=== PATIENT | male | born 1965 | race Caucasian/White ===

== ENCOUNTER 2018-06-04 09:41 | Emergency (ER) | payer MEDICAID ==
[~2018-06-04] VITALS: Ht 175.3 cm; Wt 63.5 kg
[2018-06-04 09:50] VITALS: BP_SYST 121
--- NOTE | 2018-06-04 09:55 | NUR ---
Pt placed to ER bed 06, to gown. Pt c/o hemorrhoids to anus with increasing discomfort especially with BM. Pt states that he recently started taking Fiber bars.
--- NOTE | 2018-06-04 10:10 | NUR ---
Dr. Lund at bedside. Multiple small hemorrhoids noted extruded from anus. No rectal bleeding noted.
[2018-06-04] MEDS ORDERED: LIDOCAINE/PRILOCAINE 5 GM CREAM (EMLA) TP ONE (10:15)
[2018-06-04] MEDS ORDERED: ACETAMINOPHEN 500 MG TABLET PO ONE (10:15)
[2018-06-04 10:30] VITALS: BP_SYST 123
--- NOTE | 2018-06-04 10:30 | NUR ---
Patient given written and verbal discharge instructions and verbalizes understanding. ER MD discussed with patient the results and treatment provided. Patient in stable condition. ID arm band removed. Rx of Motrin and Lidocaine Jelly given. Patient educated on pain management and to follow up with PMD. Pain Scale 1/10. Opportunity for questions provided and answered. Medication side effect fact sheet provided.
== END 2018-06-04 10:30 | disposition home or self-care (01) ==
LOC: SED 09:41
DX: K64.4 Residual hemorrhoidal skin tags (principal); F17.200 Nicotine dependence, unspecified, uncomplicated
CPT/HCPCS: 99283

== ENCOUNTER 2020-01-27 11:54 | Emergency (ER) | payer MEDICAID ==
[~2020-01-27] VITALS: Ht 175.3 cm; Wt 65.3 kg
[2020-01-27 12:40] VITALS: BP_SYST 122
--- NOTE | 2020-01-27 12:45 | NUR ---
PATIENT TO ER #2 AND ON TRAINER, SAO2, ABP
--- NOTE | 2020-01-27 12:50 | NUR ---
ER Dr. Beaulieu at bedside examining patient.
--- NOTE | 2020-01-27 12:55 | NUR ---
Pt present to the ER after a fall to his right side hurting his right shoulder x this morning approx 12 am. Swelling to R shoulder, no ROM to the upper arm, pain 10/10. Pt took ibuprofen with no relief. Will continue to monitor.
[2020-01-27] MEDS ORDERED: ONDANSETRON HCL 4 MG/2 ML VIAL IVP ONE (13:00)
[2020-01-27] MEDS ORDERED: MORPHINE 4 MG/ML INJ. SYRINGE IVP ONE (13:00)
[2020-01-27 13:50] LABS: BASOPHILS % (AUTO) 0.4 % (0.0-2.0); EOSINOPHILS % (AUTO) 0.2 % (0.0-4.0); HEMOGLOBIN 15.4 g/dL (14.0-18.0); LYMPHOCYTES % (AUTO) 9.2 % (20.5-51.5); MEAN CORPUSCULAR HEMOGLOBIN 35 pg (27-31); MEAN CORPUSCULAR HGB CONC 34 % (32-36); MEAN CORPUSCULAR VOLUME 102 fL (79.0-98.0); MONOCYTES % (AUTO) 9.4 % (1.7-9.3); NEUTROPHILS # (AUTO) 8.5 K/uL (1.8-7.7); NEUTROPHILS % (AUTO) 80.8 % (40.0-70.0); PLATELET COUNT (AUTO) 275 K/uL (130-430); RED BLOOD CELL COUNT(AUTO) 4.41 MIL/uL (4.2-6.2); RED CELL DISTRIBUTION WIDTH 14.1 % (9.0-15.0); WHITE BLOOD COUNT (AUTO) 10.6 K/uL (4.8-10.8)
--- NOTE | 2020-01-27 13:56 | NUR ---
REASSESSMENT; PATIENT STATES HIS SYMPTOMS ARE IMPROVED
[2020-01-27 14:05] LABS: CALCIUM 8.9 mg/dL (8.4-11.0); CREATININE 0.78 mg/dL (0.55-1.30); POTASSIUM 4.3 mmol/L (3.5-5.1)
[2020-01-27 14:23] LABS: ALBUMIN 3.4 g/dL (3.4-4.8); TOTAL BILIRUBIN 0.6 mg/dL (0.0-1.0)
[2020-01-27 14:31] LABS: BLOOD, URINE NEGATIVE (NEGATIVE); CLARITY/URINE CLEAR (CLEAR); GLUCOSE,URINE NEGATIVE (NEGATIVE); KETONES,URINE 2+ (NEGATIVE); LEUKOCYTE ESTERASE ,URINE TRACE (NEGATIVE); NITRITE, URINE NEGATIVE (NEGATIVE); PH,URINE 5.5 (5.0-8.0); PROTEIN URINE TRACE (NEGATIVE); UROBILINOGEN,URINE 0.2 (0.2-1.0)
[2020-01-27 14:41] LABS: BILIRUBIN,URINE NEGATIVE (NEGATIVE); COLOR,URINE AMBER (YELLOW)
[2020-01-27 14:43] LABS: BACTERIA,URINE FEW /HPF (None Seen); MUCUS,URINE 1+ /LPF (None Seen); RBC,URINE 0-3 /HPF (0-3)
--- NOTE | 2020-01-27 15:00 | NUR ---
Jonnie Ellis, pt's friend called for an update. Call back number [phone]. If patient is discharged, his friend will pick him up.
--- NOTE | 2020-01-27 15:26 | NUR ---
Pt reassessed, stable and pain free.
[2020-01-27 16:09] VITALS: BP_SYST 122
--- NOTE | 2020-01-27 16:09 | NUR ---
Patient given written and verbal discharge instructions and verbalizes understanding. ER MD discussed with patient the results and treatment provided. Patient in stable condition. ID arm band removed. IV catheter removed intact and dressing applied, no active bleeding. Rx of Tylenol #3, and zofran given. Patient educated on pain management and to follow up with PMD. Pain Scale 3/10. Opportunity for questions provided and answered. Medication side effect fact sheet provided.
== END 2020-01-27 16:09 | disposition home or self-care (01) ==
LOC: SED 11:54
DX: S42.291A Other displaced fracture of upper end of right humerus, initial encounter for closed fracture (principal); M19.90 Unspecified osteoarthritis, unspecified site; F17.200 Nicotine dependence, unspecified, uncomplicated; Z71.6 Tobacco abuse counseling; W01.0XXA Fall on same level from slipping, tripping and stumbling without subsequent striking against object, initial encounter; Y93.01 Activity, walking, marching and hiking; Y92.89 Other specified places as the place of occurrence of the external cause; Y99.8 Other external cause status
CPT/HCPCS: 36415; 71045; 73030; 80053; 81000; 82550; 83605; 83690; 84484; 85025; 87040; 93005; 96374; 96375; 99285; J2270; J2405

== ENCOUNTER 2020-10-30 09:11 | Inpatient (IN) | payer MEDICAID, SELFPAY ==
[~2020-10-30] VITALS: Ht 175.3 cm; Wt 54.9 kg
[~2020-10-30 09:11] MED LIST: DOCU-144 PO; HYDR-3925 PO
[2020-10-30] MEDS ORDERED: KETOROLAC TROMETHAMINE 30 MG VIAL IVP ONE (10:00)
[2020-10-30] MEDS ORDERED: NACL 0.9% 1,600 ML IV ONE (10:00)
[2020-10-30] MEDS ORDERED: PIPERACILLIN/TAZO 3.375 GM in NS 50 ML IV ONE (10:00)
[2020-10-30] MEDS ORDERED: PIPERACILLIN/TAZOBACTAM 3.375 GM/VIAL (ZOSYN) IV ONE (10:15)
[2020-10-30 10:24] LABS: BASOPHILS # (AUTO) 0.1 K/uL (0.0-0.2); BASOPHILS % (AUTO) 0.6 % (0.0-2.0); EOSINOPHILS # (AUTO) 0.1 K/uL (0.0-0.4); EOSINOPHILS % (AUTO) 1.7 % (0.0-4.0); HEMATOCRIT 38.6 % (36-54); HEMOGLOBIN 12.8 g/dL (14.0-18.0); LYMPHOCYTES # (AUTO) 2.1 K/uL (1.0-5.5); LYMPHOCYTES % (AUTO) 25.2 % (20.5-51.5); MEAN CORPUSCULAR HEMOGLOBIN 32 pg (27-31); MEAN CORPUSCULAR HGB CONC 33 % (32-36); MEAN CORPUSCULAR VOLUME 97 fL (79.0-98.0); MONOCYTES # (AUTO) 0.7 K/uL (0.0-1.0); MONOCYTES % (AUTO) 8.8 % (1.7-9.3); NEUTROPHILS # (AUTO) 5.3 K/uL (1.8-7.7); NEUTROPHILS % (AUTO) 63.7 % (40.0-70.0); PLATELET COUNT (AUTO) 315 K/uL (130-430); RED BLOOD CELL COUNT(AUTO) 3.98 MIL/uL (4.2-6.2); RED CELL DISTRIBUTION WIDTH 15.9 % (9.0-15.0); WHITE BLOOD COUNT (AUTO) 8.4 K/uL (4.8-10.8)
[2020-10-30 10:54] LABS: ALBUMIN 3.3 g/dL (3.4-4.8); CALCIUM 9.6 mg/dL (8.4-11.0); CREATININE 0.69 mg/dL (0.55-1.30); POTASSIUM 4.2 mmol/L (3.5-5.1); TOTAL BILIRUBIN 0.2 mg/dL (0.0-1.0)
[2020-10-30] MEDS ORDERED: MIDAZOLAM HCL 5 MG/5 ML VIAL IVP ONE (12:20)
[2020-10-30] MEDS ORDERED: LR 1,000 ML IV.SOLN IV ONE (12:20)
[2020-10-30] MEDS ORDERED: PROPOFOL 200MG/ 20ML VIAL (DIPRIVAN) IV ONE (12:20)
[2020-10-30] MEDS ORDERED: fentaNYL CITRATE/PF 100 MCG/2 ML AMP IVP ONE (12:20)
[2020-10-30] MEDS ORDERED: NS IRRIG SOLN 1000 ML IR ONE (12:20)
[2020-10-30] MEDS ORDERED: BUPIVACAINE /PF 0.25% 30 ML VIAL INJ ONE (12:20)
[2020-10-30] MEDS ORDERED: ONDANSETRON HCL 4 MG/2 ML VIAL IVP ONE (12:20)
[2020-10-30] MEDS ORDERED: METOCLOPRAMIDE HCL 10 MG/2 ML VIAL IVP ONE (12:20)
[2020-10-30] MEDS ORDERED: CEFAZOLIN 2 GM IVPB PREMIX 50 ML IV ONE (12:20)
[2020-10-30] MEDS ORDERED: HYDROmorphone 1 MG INJ. 1 MG/ML AMPUL IM PRN (13:15)
[2020-10-30] MEDS ORDERED: ONDANSETRON HCL 4 MG/2 ML VIAL IVP PRN (13:15)
[2020-10-30] MEDS ORDERED: ACETAMINOPHEN 325 MG TABLET PO PRN (13:15)
[2020-10-30] MEDS ORDERED: LORazepam 2 MG/ML VIAL IVP PRN (13:15)
[2020-10-30] MEDS ORDERED: HYDROcodone/ACETAMIN 5-325 MG TAB (NORCO/ VICODIN) PO PRN ×2 (13:15)
[2020-10-30] MEDS ORDERED: HYDROmorphone 2 MG/ML VIAL IVP PRN (13:15)
[2020-10-30 13:45] VITALS: BP_SYST 116
[2020-10-30] MEDS: NORMAL SALINE 5 ML DISP.SYRIN IVF SCH ×2 (15:25→21:26)
[2020-10-30 16:00] VITALS: BP_SYST 119
[2020-10-30] MEDS: PIPERACILLIN/TAZO 3.375/DEX-IS 50 ML IV SCH (18:00)
[2020-10-31 01:50] VITALS: BP_SYST 120
[2020-10-31 06:48] LABS: BASOPHILS % (AUTO) 0.2 % (0.0-2.0); EOSINOPHILS % (AUTO) 0.1 % (0.0-4.0); HEMOGLOBIN 11.6 g/dL (14.0-18.0); LYMPHOCYTES # (AUTO) 1.6 K/uL (1.0-5.5); LYMPHOCYTES % (AUTO) 15.5 % (20.5-51.5); MEAN CORPUSCULAR HEMOGLOBIN 32 pg (27-31); MEAN CORPUSCULAR HGB CONC 33 % (32-36); MEAN CORPUSCULAR VOLUME 97 fL (79.0-98.0); MONOCYTES # (AUTO) 0.5 K/uL (0.0-1.0); NEUTROPHILS # (AUTO) 8.1 K/uL (1.8-7.7); NEUTROPHILS % (AUTO) 79.2 % (40.0-70.0); PLATELET COUNT (AUTO) 312 K/uL (130-430); RED BLOOD CELL COUNT(AUTO) 3.63 MIL/uL (4.2-6.2); RED CELL DISTRIBUTION WIDTH 15.4 % (9.0-15.0); WHITE BLOOD COUNT (AUTO) 10.2 K/uL (4.8-10.8)
[2020-10-31] MEDS: NORMAL SALINE 5 ML DISP.SYRIN IVF SCH ×3 (07:15→21:27)
[2020-10-31] MEDS: PIPERACILLIN/TAZO 3.375/DEX-IS 50 ML IV SCH ×4 (07:15→18:50)
[2020-10-31 07:39] LABS: CALCIUM 9.3 mg/dL (8.4-11.0); CREATININE 0.71 mg/dL (0.55-1.30); POTASSIUM 4.7 mmol/L (3.5-5.1)
[2020-10-31 08:00] VITALS: BP_SYST 124
[2020-10-31 11:32] VITALS: BP_SYST 104
[2020-10-31 16:00] VITALS: BP_SYST 108
[2020-10-31] MEDS ORDERED: BALSAM PERU/CASTOR OIL 60 GM OINT...G. TP ONE (16:45)
[2020-10-31 20:00] VITALS: BP_SYST 120
[2020-11-01] MEDS: NORMAL SALINE 5 ML DISP.SYRIN IVF SCH ×3 (06:00→21:25)
[2020-11-01] MEDS: PIPERACILLIN/TAZO 3.375/DEX-IS 50 ML IV SCH ×4 (06:00→19:03)
[2020-11-01 07:32] LABS: BASOPHILS % (AUTO) 0.4 % (0.0-2.0); EOSINOPHILS # (AUTO) 0.1 K/uL (0.0-0.4); EOSINOPHILS % (AUTO) 0.9 % (0.0-4.0); HEMATOCRIT 35.3 % (36-54); HEMOGLOBIN 11.8 g/dL (14.0-18.0); LYMPHOCYTES # (AUTO) 2.6 K/uL (1.0-5.5); LYMPHOCYTES % (AUTO) 25.5 % (20.5-51.5); MEAN CORPUSCULAR HEMOGLOBIN 32 pg (27-31); MEAN CORPUSCULAR HGB CONC 33 % (32-36); MEAN CORPUSCULAR VOLUME 96 fL (79.0-98.0); MONOCYTES # (AUTO) 0.9 K/uL (0.0-1.0); MONOCYTES % (AUTO) 8.6 % (1.7-9.3); NEUTROPHILS # (AUTO) 6.7 K/uL (1.8-7.7); NEUTROPHILS % (AUTO) 64.6 % (40.0-70.0); PLATELET COUNT (AUTO) 290 K/uL (130-430); RED BLOOD CELL COUNT(AUTO) 3.68 MIL/uL (4.2-6.2); RED CELL DISTRIBUTION WIDTH 15.8 % (9.0-15.0); WHITE BLOOD COUNT (AUTO) 10.4 K/uL (4.8-10.8)
[2020-11-01 08:05] VITALS: BP_SYST 117
[2020-11-01 08:07] LABS: ALBUMIN 2.7 g/dL (3.4-4.8); CREATININE 0.77 mg/dL (0.55-1.30); POTASSIUM 4.3 mmol/L (3.5-5.1); TOTAL BILIRUBIN 0.3 mg/dL (0.0-1.0)
[2020-11-01 08:38] LABS: C-REACTIVE PROTEIN QUANT 5.1 mg/dL (0-0.5)
[2020-11-01 08:46] LABS: ERYTHROCYTE SEDIMENTATION RATE 80 MM/HR (0-15)
[2020-11-01 11:48] VITALS: BP_SYST 105
[2020-11-01 16:00] VITALS: BP_SYST 118
[2020-11-01] MEDS: HYDROcodone/ACETAMIN 10-325 MG TAB PO PRN (16:45)
[2020-11-01] MEDS: BALSAM PERU/CASTOR OIL 60 GM OINT...G. TP SCH (16:45)
[2020-11-01 20:00] VITALS: BP_SYST 110
[2020-11-01] MEDS: DOCUSATE SODIUM 100 MG CAPSULE PO SCH (21:24)
[2020-11-02 00:11] VITALS: BP_SYST 123
[2020-11-02] MEDS: PIPERACILLIN/TAZO 3.375/DEX-IS 50 ML IV SCH ×4 (01:22→17:30)
[2020-11-02] MEDS: NORMAL SALINE 5 ML DISP.SYRIN IVF SCH ×3 (05:54→20:47)
[2020-11-02 06:43] LABS: BASOPHILS % (AUTO) 0.3 % (0.0-2.0); EOSINOPHILS # (AUTO) 0.1 K/uL (0.0-0.4); EOSINOPHILS % (AUTO) 1.4 % (0.0-4.0); HEMATOCRIT 35.2 % (36-54); HEMOGLOBIN 11.8 g/dL (14.0-18.0); LYMPHOCYTES # (AUTO) 2.4 K/uL (1.0-5.5); LYMPHOCYTES % (AUTO) 27.2 % (20.5-51.5); MEAN CORPUSCULAR HEMOGLOBIN 32 pg (27-31); MEAN CORPUSCULAR HGB CONC 34 % (32-36); MEAN CORPUSCULAR VOLUME 96 fL (79.0-98.0); MONOCYTES # (AUTO) 0.9 K/uL (0.0-1.0); MONOCYTES % (AUTO) 10.5 % (1.7-9.3); NEUTROPHILS # (AUTO) 5.3 K/uL (1.8-7.7); NEUTROPHILS % (AUTO) 60.6 % (40.0-70.0); PLATELET COUNT (AUTO) 289 K/uL (130-430); RED BLOOD CELL COUNT(AUTO) 3.66 MIL/uL (4.2-6.2); RED CELL DISTRIBUTION WIDTH 15.4 % (9.0-15.0); WHITE BLOOD COUNT (AUTO) 8.7 K/uL (4.8-10.8)
[2020-11-02 07:13] LABS: CALCIUM 9.1 mg/dL (8.4-11.0); CREATININE 0.73 mg/dL (0.55-1.30); POTASSIUM 4.2 mmol/L (3.5-5.1)
[2020-11-02 07:49] LABS: ERYTHROCYTE SEDIMENTATION RATE 87 MM/HR (0-15)
[2020-11-02 07:56] LABS: C-REACTIVE PROTEIN QUANT 10.6 mg/dL (0-0.5)
[2020-11-02 08:00] VITALS: BP_SYST 109
[2020-11-02] MEDS: BALSAM PERU/CASTOR OIL 60 GM OINT...G. TP SCH (10:20)
[2020-11-02 12:00] VITALS: BP_SYST 120
[2020-11-02] MEDS: HYDROcodone/ACETAMIN 10-325 MG TAB PO PRN (16:16)
[2020-11-02 16:37] VITALS: BP_SYST 125
[2020-11-02 20:00] VITALS: BP_SYST 117
[2020-11-02] MEDS: DOCUSATE SODIUM 100 MG CAPSULE PO SCH (20:36)
[2020-11-03] VITALS: BP_SYST 120
[2020-11-03] MEDS: PIPERACILLIN/TAZO 3.375/DEX-IS 50 ML IV SCH ×4 (01:22→17:21)
[2020-11-03] MEDS: NORMAL SALINE 5 ML DISP.SYRIN IVF SCH ×3 (05:49→22:00)
[2020-11-03 06:58] LABS: BASOPHILS % (AUTO) 0.5 % (0.0-2.0); EOSINOPHILS # (AUTO) 0.2 K/uL (0.0-0.4); EOSINOPHILS % (AUTO) 3.1 % (0.0-4.0); HEMATOCRIT 34.6 % (36-54); HEMOGLOBIN 11.6 g/dL (14.0-18.0); LYMPHOCYTES # (AUTO) 2.3 K/uL (1.0-5.5); LYMPHOCYTES % (AUTO) 33.3 % (20.5-51.5); MEAN CORPUSCULAR HEMOGLOBIN 32 pg (27-31); MEAN CORPUSCULAR HGB CONC 33 % (32-36); MEAN CORPUSCULAR VOLUME 96 fL (79.0-98.0); MONOCYTES # (AUTO) 0.7 K/uL (0.0-1.0); MONOCYTES % (AUTO) 10.3 % (1.7-9.3); NEUTROPHILS # (AUTO) 3.7 K/uL (1.8-7.7); NEUTROPHILS % (AUTO) 52.8 % (40.0-70.0); PLATELET COUNT (AUTO) 305 K/uL (130-430); RED CELL DISTRIBUTION WIDTH 15.3 % (9.0-15.0)
[2020-11-03 07:23] LABS: CALCIUM 9.4 mg/dL (8.4-11.0); CREATININE 0.76 mg/dL (0.55-1.30)
[2020-11-03 07:30] VITALS: BP_SYST 133
[2020-11-03 08:19] LABS: ERYTHROCYTE SEDIMENTATION RATE 91 MM/HR (0-15)
[2020-11-03 09:02] LABS: C-REACTIVE PROTEIN QUANT 8.9 mg/dL (0-0.5)
[2020-11-03] MEDS: BALSAM PERU/CASTOR OIL 60 GM OINT...G. TP SCH (09:24)
[2020-11-03 12:00] VITALS: BP_SYST 131
[2020-11-03] MEDS: HYDROcodone/ACETAMIN 10-325 MG TAB PO PRN (15:43)
[2020-11-03 17:25] VITALS: BP_SYST 128
[2020-11-03 20:00] VITALS: BP_SYST 156
[2020-11-03] MEDS: DOCUSATE SODIUM 100 MG CAPSULE PO SCH (20:13)
[2020-11-03] MEDS ORDERED: cefTRIAXone 1 GM VIAL ONE (22:15)
[2020-11-04 04:00] VITALS: BP_SYST 137
[2020-11-04] MEDS: NORMAL SALINE 5 ML DISP.SYRIN IVF SCH ×3 (06:00→20:47)
[2020-11-04 06:40] LABS: BASOPHILS % (AUTO) 0.4 % (0.0-2.0); EOSINOPHILS # (AUTO) 0.3 K/uL (0.0-0.4); EOSINOPHILS % (AUTO) 4.5 % (0.0-4.0); HEMATOCRIT 36.9 % (36-54); HEMOGLOBIN 12.4 g/dL (14.0-18.0); LYMPHOCYTES # (AUTO) 2.4 K/uL (1.0-5.5); LYMPHOCYTES % (AUTO) 41.4 % (20.5-51.5); MEAN CORPUSCULAR HEMOGLOBIN 32 pg (27-31); MEAN CORPUSCULAR HGB CONC 34 % (32-36); MEAN CORPUSCULAR VOLUME 96 fL (79.0-98.0); MONOCYTES # (AUTO) 0.7 K/uL (0.0-1.0); MONOCYTES % (AUTO) 11.1 % (1.7-9.3); NEUTROPHILS # (AUTO) 2.5 K/uL (1.8-7.7); NEUTROPHILS % (AUTO) 42.6 % (40.0-70.0); PLATELET COUNT (AUTO) 319 K/uL (130-430); RED BLOOD CELL COUNT(AUTO) 3.84 MIL/uL (4.2-6.2); RED CELL DISTRIBUTION WIDTH 15.3 % (9.0-15.0); WHITE BLOOD COUNT (AUTO) 5.8 K/uL (4.8-10.8)
[2020-11-04 07:25] LABS: ALBUMIN 2.9 g/dL (3.4-4.8); CALCIUM 9.3 mg/dL (8.4-11.0); CREATININE 0.83 mg/dL (0.55-1.30); POTASSIUM 4.2 mmol/L (3.5-5.1); TOTAL BILIRUBIN 0.3 mg/dL (0.0-1.0)
[2020-11-04 08:00] VITALS: BP_SYST 136
[2020-11-04 08:10] LABS: ERYTHROCYTE SEDIMENTATION RATE 85 MM/HR (0-15)
[2020-11-04] MEDS: BALSAM PERU/CASTOR OIL 60 GM OINT...G. TP SCH (08:22)
[2020-11-04 09:26] LABS: C-REACTIVE PROTEIN QUANT 6.1 mg/dL (0-0.5)
[2020-11-04 12:29] VITALS: BP_SYST 108
[2020-11-04] MEDS: HYDROcodone/ACETAMIN 10-325 MG TAB PO PRN (16:01)
[2020-11-04 20:00] VITALS: BP_SYST 106
[2020-11-04 20:40] LABS: PROTHROMBIN TIME 10.7 SECS (9.5-12.5)
[2020-11-04] MEDS: DOCUSATE SODIUM 100 MG CAPSULE PO SCH (20:46)
[2020-11-05] VITALS: BP_SYST 118
[2020-11-05] MEDS: NORMAL SALINE 5 ML DISP.SYRIN IVF SCH ×3 (05:09→21:36)
[2020-11-05 06:32] LABS: BASOPHILS % (AUTO) 0.5 % (0.0-2.0); EOSINOPHILS # (AUTO) 0.2 K/uL (0.0-0.4); EOSINOPHILS % (AUTO) 2.6 % (0.0-4.0); HEMATOCRIT 37.1 % (36-54); HEMOGLOBIN 12.4 g/dL (14.0-18.0); LYMPHOCYTES # (AUTO) 2.2 K/uL (1.0-5.5); LYMPHOCYTES % (AUTO) 28.8 % (20.5-51.5); MEAN CORPUSCULAR HEMOGLOBIN 32 pg (27-31); MEAN CORPUSCULAR HGB CONC 33 % (32-36); MEAN CORPUSCULAR VOLUME 96 fL (79.0-98.0); MONOCYTES # (AUTO) 0.8 K/uL (0.0-1.0); MONOCYTES % (AUTO) 9.7 % (1.7-9.3); NEUTROPHILS # (AUTO) 4.5 K/uL (1.8-7.7); NEUTROPHILS % (AUTO) 58.4 % (40.0-70.0); PLATELET COUNT (AUTO) 329 K/uL (130-430); RED BLOOD CELL COUNT(AUTO) 3.87 MIL/uL (4.2-6.2); RED CELL DISTRIBUTION WIDTH 14.9 % (9.0-15.0); WHITE BLOOD COUNT (AUTO) 7.7 K/uL (4.8-10.8)
[2020-11-05 07:31] LABS: CALCIUM 9.3 mg/dL (8.4-11.0); CREATININE 0.85 mg/dL (0.55-1.30); POTASSIUM 3.9 mmol/L (3.5-5.1)
[2020-11-05 07:57] LABS: C-REACTIVE PROTEIN QUANT 3.5 mg/dL (0-0.5)
[2020-11-05 07:58] LABS: ERYTHROCYTE SEDIMENTATION RATE 78 MM/HR (0-15)
[2020-11-05 08:00] VITALS: BP_SYST 135
[2020-11-05] MEDS: BALSAM PERU/CASTOR OIL 60 GM OINT...G. TP SCH (08:51)
[2020-11-05] MEDS: HYDROcodone/ACETAMIN 10-325 MG TAB PO PRN (15:34)
[2020-11-05 16:03] VITALS: BP_SYST 131
[2020-11-05 20:00] VITALS: BP_SYST 127
[2020-11-05] MEDS: DOCUSATE SODIUM 100 MG CAPSULE PO SCH (21:36)
[2020-11-06] VITALS: BP_SYST 130
[2020-11-06] MEDS: NORMAL SALINE 5 ML DISP.SYRIN IVF SCH (06:16)
[2020-11-06 06:43] LABS: BASOPHILS % (AUTO) 0.4 % (0.0-2.0); EOSINOPHILS # (AUTO) 0.1 K/uL (0.0-0.4); EOSINOPHILS % (AUTO) 1.7 % (0.0-4.0); HEMATOCRIT 35.2 % (36-54); LYMPHOCYTES # (AUTO) 2.3 K/uL (1.0-5.5); LYMPHOCYTES % (AUTO) 26.5 % (20.5-51.5); MEAN CORPUSCULAR HEMOGLOBIN 32 pg (27-31); MEAN CORPUSCULAR HGB CONC 34 % (32-36); MEAN CORPUSCULAR VOLUME 95 fL (79.0-98.0); MONOCYTES # (AUTO) 1.1 K/uL (0.0-1.0); MONOCYTES % (AUTO) 12.5 % (1.7-9.3); NEUTROPHILS # (AUTO) 5.1 K/uL (1.8-7.7); NEUTROPHILS % (AUTO) 58.9 % (40.0-70.0); PLATELET COUNT (AUTO) 292 K/uL (130-430); RED CELL DISTRIBUTION WIDTH 15.2 % (9.0-15.0); WHITE BLOOD COUNT (AUTO) 8.6 K/uL (4.8-10.8)
[2020-11-06 06:44] LABS: CREATININE 0.69 mg/dL (0.55-1.30); POTASSIUM 4.1 mmol/L (3.5-5.1)
[2020-11-06 07:10] LABS: C-REACTIVE PROTEIN QUANT 6.3 mg/dL (0-0.5)
[2020-11-06 08:00] VITALS: BP_SYST 120
[2020-11-06 08:02] LABS: ERYTHROCYTE SEDIMENTATION RATE 84 MM/HR (0-15)
[2020-11-06] MEDS: BALSAM PERU/CASTOR OIL 60 GM OINT...G. TP SCH (08:50)
[2020-11-06] MEDS: HYDROcodone/ACETAMIN 10-325 MG TAB PO PRN (10:30)
[2020-11-06 12:42] VITALS: BP_SYST 139
[2020-11-06] MEDS ORDERED: CEPH-568 PO (12:53)
[2020-11-06 12:55] VITALS: BP_SYST 139
[2020-11-06] MEDS ORDERED: BALS60OI TP (13:03)
[2020-11-06] MEDS ORDERED: NL IV (13:04)
== END 2020-11-06 13:40 | disposition home or self-care (01) | DRG 364 ==
LOC: SED 09:11 → SDS 10:01 → SMU 10:08 → SDS 14:09 → SMU 14:11
PROVIDERS: ADMIT Preventive Medicine Preventive Medicine/Occupational Environmental Medicine; ATTEND Preventive Medicine Preventive Medicine/Occupational Environmental Medicine
PROC: 0QB30ZZ Excision of Left Pelvic Bone, Open Approach (ICD-10-PCS; principal; 2020-10-30 12:00)
DX: L89.329 Pressure ulcer of left buttock, unspecified stage (principal); L02.31 Cutaneous abscess of buttock; E88.09 Other disorders of plasma-protein metabolism, not elsewhere classified; D64.9 Anemia, unspecified; R73.9 Hyperglycemia, unspecified; E44.0 Moderate protein-calorie malnutrition; Z20.822 Contact with and (suspected) exposure to COVID-19; B96.20 Unspecified Escherichia coli [E. coli] as the cause of diseases classified elsewhere; Z79.891 Long term (current) use of opiate analgesic; Z79.899 Other long term (current) drug therapy; Z68.1 Body mass index [BMI] 19.9 or less, adult
CPT/HCPCS: 36415; 71045; 78315; 80048; 80053; 83605; 85025; 85610-TC; 85651-TC; 85730-TC; 86140; 87040-TC; 87070; 87070-TC; 93005; 96365; 96375; A9503; J0690; J0696; J1885; J2250; J2405; J2543; J2704; J2765; J3010; J3490; J7060; J7120

== ENCOUNTER 2022-07-16 08:36 | Inpatient (IN) | payer MEDICAID ==
[~2022-07-16] VITALS: Ht 175.3 cm; Wt 61.2 kg
[~2022-07-16 08:36] MED LIST changes: +BALS60OI TP; +CEPH-568 PO; +NL IV
--- NOTE | 2022-07-16 08:52 | NUR ---
Patient to ER bed 04 to gown for evaluation. Side rails up. .
--- NOTE | 2022-07-16 08:53 | NUR ---
Pt brought by , A&Ox4, pt presents to ER with R buttocks/ R lower back pain, pt states he had a spider bite sx on R buttocks 2 years ago, no redness or open areas noted at this time, VSS, will cont to monitor.
--- NOTE | 2022-07-16 08:54 | NUR ---
Dr Beaulieu evaluating patient at bedside
[2022-07-16 08:55] VITALS: BP_SYST 123
[2022-07-16 09:17] LABS: BASOPHILS # (AUTO) 0.1 K/uL (0.0-0.2); BASOPHILS % (AUTO) 0.6 % (0.0-2.0); EOSINOPHILS % (AUTO) 0.1 % (0.0-4.0); HEMATOCRIT 39.8 % (36-54); HEMOGLOBIN 13.8 g/dL (14.0-18.0); LYMPHOCYTES # (AUTO) 1.1 K/uL (1.0-5.5); MEAN CORPUSCULAR HEMOGLOBIN 34 pg (27-31); MEAN CORPUSCULAR HGB CONC 35 % (32-36); MEAN CORPUSCULAR VOLUME 97 fL (79.0-98.0); MONOCYTES # (AUTO) 1.2 K/uL (0.0-1.0); NEUTROPHILS # (AUTO) 8.5 K/uL (1.8-7.7); NEUTROPHILS % (AUTO) 78.3 % (40.0-70.0); PLATELET COUNT (AUTO) 293 K/uL (130-430); RED BLOOD CELL COUNT(AUTO) 4.11 MIL/uL (4.2-6.2); RED CELL DISTRIBUTION WIDTH 14.2 % (9.0-15.0); WHITE BLOOD COUNT (AUTO) 10.9 K/uL (4.8-10.8)
[2022-07-16 09:26] LABS: CREATININE 0.78 mg/dL (0.55-1.30)
[2022-07-16 09:31] LABS: ALBUMIN 2.9 g/dL (3.4-4.8); TOTAL BILIRUBIN 0.5 mg/dL (0.0-1.0)
[2022-07-16 09:42] LABS: C-REACTIVE PROTEIN QUANT 25.2 mg/dL (0-0.5)
--- NOTE | 2022-07-16 10:27 | NUR ---
NOTIFIED ED ADMITTING, RANDA, REGARDING DR. MOSS'S REQUEST FOR ADMISSION/TRANSFER. PER DR. MOSS, PT IS STABLE FOR TRANSFER. WILL CONTACT BOG WORKER REGARDING THIS MATTER. PER FACESHEET: [facility]- [facility]
[2022-07-16] MEDS ORDERED: PIPERACILLIN/TAZO 4.5GM/DEX-IS 100 ML IV SCH (10:30)
[2022-07-16] MEDS ORDERED: PIPERACILLIN/TAZOBACTAM 4.5 GM/VIAL (ZOSYN) IV ONE (10:49)
[2022-07-16] MEDS ORDERED: PIPERACILLIN/TAZO 4.5GM/DEX-IS 100 ML IV ONE (10:59)
[2022-07-16] MEDS ORDERED: MORPHINE 2 MG/ML INJ. SYRINGE IVP ONE (11:00)
--- NOTE | 2022-07-16 11:11 | NUR ---
Report given to Daria ZUÑIGA
[2022-07-16] MEDS ORDERED: VANCOMYCIN HCL 1,000 MG in NS 250 ML IV ONE (11:15)
--- NOTE | 2022-07-16 11:47 | NUR ---
per sam, ed admitting, stated that pt insurance stated to fax clinicals after pt is admitted. will call industrial automation specialist hospitalist, dr. castro, for admission
[2022-07-16] MEDS ORDERED: D5/0.45 NS 1,000 ML IV ONE (12:00)
--- NOTE | 2022-07-16 12:03 | NUR ---
Admit bed requested Patient will be admitted to care of Admitted to [facility] unit. Diagnosis Back Abscess Inpatient (Yes or No) Yes Observation (Yes or No) No Orientation concerns or request close to nursing station (Yes or No) No Covid Status NEG On vent or bipap No Isolation requirements No Needs a sitter No From Home (Yes or if No enter name of facility) Home Requires Dialysis (Yes or No) No Med Rec Completed (Yes of No) Yes
--- NOTE | 2022-07-16 13:04 | NUR ---
Patient will be admitted to care of Dr Mancia. Admitted to [facility] unit. Will go to room 101B. Belongings list completed. Complete and up to date summary report printed. SBAR report to be given at bedside with opportunity for questions.
--- NOTE | 2022-07-16 13:18 | NUR ---
CONSULTATION PAGED REASON FOR CONSULTATION BACK ABSCESS WAS CONSULT CALED?Y PERSON WHO WAS NOTIFIED:KALEY CONSULTING PHYSICIAN:ZAC SARABIA EDITOR MANAGING DIRECTOR SPECIALTY:SURGEON EDITOR MANAGING DIRECTOR PHONE NUMBER:[phone] REQUESTING PHYSICIAN:THOMAS GOODWIN
[2022-07-16 13:50] VITALS: BP_SYST 135
[2022-07-16] MEDS ORDERED: HYDROcodone/ACETAMIN 5-325 MG TAB (NORCO/ VICODIN) PO PRN (15:15)
[2022-07-16] MEDS: HYDROcodone/ACETAMIN 10-325 MG TAB PO PRN ×2 (15:42→23:51)
[2022-07-16 16:00] VITALS: BP_SYST 116
[2022-07-16 16:57] LABS: INR 1.2 (0.80-1.20); PROTHROMBIN TIME 11.7 SECS (9.5-12.5)
[2022-07-16] MEDS ORDERED: BUPIVACAINE /PF 0.25% 30 ML VIAL INJ ONE (17:00)
[2022-07-16] MEDS ORDERED: [UNRECOGNIZED DRUG - OTHER] INJ ONE (17:00)
[2022-07-16] MEDS ORDERED: NS IRRIG SOLN 1000 ML IR ONE (17:00)
[2022-07-16] MEDS ORDERED: fentaNYL CITRATE 250 MCG/5 ML AMP ONE (17:00)
[2022-07-16] MEDS ORDERED: LR 1,000 ML IV.SOLN IV ONE (17:00)
[2022-07-16] MEDS ORDERED: MIDAZOLAM HCL 5 MG/5 ML VIAL ONE (17:00)
[2022-07-16] MEDS ORDERED: PROPOFOL 200MG/ 20ML VIAL (DIPRIVAN) IV ONE (17:00)
[2022-07-16] MEDS ORDERED: ONDANSETRON HCL 4 MG/2 ML VIAL IVP PRN (18:15)
[2022-07-16] MEDS ORDERED: METOCLOPRAMIDE HCL 10 MG/2 ML VIAL IVP PRN (18:15)
[2022-07-16] MEDS ORDERED: KETOROLAC TROMETHAMINE 30 MG VIAL IVP PRN (18:15)
[2022-07-16] MEDS ORDERED: MORPHINE 4 MG INJ. 4 MG/ML VIAL IVP PRN ×2 (18:15)
[2022-07-16 20:08] VITALS: BP_SYST 123
[2022-07-16] MEDS: DOCUSATE SODIUM 250 MG CAPSULE PO SCH (21:00)
[2022-07-16] MEDS: CEFAZOLIN SODIUM 500 MG in D5W 50 ML IV SCH (22:00)
[2022-07-16] MEDS: metroNIDAZOLE 250 mg/NS 50 ML IV SCH (23:50)
[2022-07-17 00:46] VITALS: BP_SYST 117
[2022-07-17] MEDS: CEFAZOLIN SODIUM 500 MG in D5W 50 ML IV SCH ×3 (05:28→21:10)
[2022-07-17] MEDS: HYDROcodone/ACETAMIN 10-325 MG TAB PO PRN ×2 (05:29→20:18)
[2022-07-17] MEDS: metroNIDAZOLE 250 mg/NS 50 ML IV SCH ×3 (06:20→23:34)
[2022-07-17] MEDS: DOCUSATE SODIUM 250 MG CAPSULE PO SCH ×2 (09:00→21:10)
--- NOTE | 2022-07-17 10:21 | NUR ---
CONSULTATION PAGED REASON FOR CONSULTATION:LEUKOCYTOSIS WAS CONSULT CALLED?Y PERSON WHO WAS NOTIFIED:FOUZIA CONSULTING PHYSICIAN:CARLOS A DAVIDSON NUCLEAR SPECTROSCOPIST SPECIALTY:INFECTIOUS DISEASE NUCLEAR SPECTROSCOPIST PHONE NUMBER:[phone] REQUESTING PHYSICIAN:THOMAS GOODWIN
[2022-07-17] MEDS ORDERED: NALOXONE HCL 0.4 MG/ML AMP (NARCAN) IVP PRN (10:30)
[2022-07-17 10:52] LABS: BASOPHILS % (AUTO) 0.3 % (0.0-2.0); EOSINOPHILS % (AUTO) 0.1 % (0.0-4.0); HEMATOCRIT 38.8 % (36-54); HEMOGLOBIN 13.2 g/dL (14.0-18.0); LYMPHOCYTES # (AUTO) 1.1 K/uL (1.0-5.5); LYMPHOCYTES % (AUTO) 11.4 % (20.5-51.5); MEAN CORPUSCULAR HEMOGLOBIN 33 pg (27-31); MEAN CORPUSCULAR HGB CONC 34 % (32-36); MEAN CORPUSCULAR VOLUME 96 fL (79.0-98.0); MONOCYTES # (AUTO) 1.1 K/uL (0.0-1.0); MONOCYTES % (AUTO) 11.4 % (1.7-9.3); NEUTROPHILS # (AUTO) 7.1 K/uL (1.8-7.7); NEUTROPHILS % (AUTO) 76.8 % (40.0-70.0); PLATELET COUNT (AUTO) 271 K/uL (130-430); RED BLOOD CELL COUNT(AUTO) 4.03 MIL/uL (4.2-6.2); RED CELL DISTRIBUTION WIDTH 14.2 % (9.0-15.0); WHITE BLOOD COUNT (AUTO) 9.2 K/uL (4.8-10.8)
[2022-07-17 10:59] LABS: CALCIUM 8.1 mg/dL (8.4-11.0); CREATININE 0.64 mg/dL (0.55-1.30)
[2022-07-17 11:15] VITALS: BP_SYST 130
[2022-07-17 15:35] VITALS: BP_SYST 127
--- NOTE | 2022-07-17 15:46 | NUR ---
Dietitian Recommendations * Continue regular diet * Ensure enlive (durga) BID * Recommend wound care supplements: daily MVI, 250mg VIT C, 220mg ZnSo4 x 14 days, Luis Miguel BID Please refer to nutritional assessment for details, thanks! CC, MPH, RDN
--- NOTE | 2022-07-17 19:15 | NUR ---
OPENING NOTE REPORT RECEIVED FROM DAYSHIFT NURSE. PATIENT RECEIVED LYING IN BED, FACE DOWN, NO S/S OF ACUTE DISTRESS. BREATHING EVEN AND UNLABORED. IVF INFUSING WELL. CALL LIGHT WITH PATIENT. WILL CONTINUE TO MONITOR.
[2022-07-17 20:00] VITALS: BP_SYST 132
[2022-07-17] MEDS: MORPHINE 2 MG/ML INJ. SYRINGE IVP PRN (20:02)
--- NOTE | 2022-07-17 20:30 | NUR ---
DR LEUNG AT BEDSIDE ASSESSED WOUND, MD DID WOUND CARE. ALL NEEDS MET. PATIENT MEDICATED PRIOR TO WOUND CARE.
[2022-07-18] VITALS: BP_SYST 124
--- NOTE | 2022-07-18 | NUR ---
ROUND PATIENT IN BED, RESTING. NO SIGNS OF DISCOMFORT. ALL NEEDS MET. WILL MONITOR.
[2022-07-18] MEDS: HYDROcodone/ACETAMIN 10-325 MG TAB PO PRN ×2 (00:43→13:28)
[2022-07-18] MEDS: CEFAZOLIN SODIUM 500 MG in D5W 50 ML IV SCH ×3 (05:22→23:32)
[2022-07-18] MEDS: metroNIDAZOLE 250 mg/NS 50 ML IV SCH ×3 (05:58→23:37)
--- NOTE | 2022-07-18 06:40 | NUR ---
CLOSING NOTE PATIENT IN BED, RESTING. NO S/S OF ACUTE DISTRESS. BREATHING EVEN AND UNLABORED. IV SITE IS PATENT, NO SIGNS OF INFILTRATION OR INFECTION NOTED. IV SITE PATENT, NO SIGNS OF INFILTRATION OR INFECTION NOTED. ALL NEEDS MET THROUGHOUT SHIFT. FALL, SAFETY PRECAUTIONS MAINTAINED THROUGHOUT SHIFT. WILL CONTINUE TO MONITOR UNTIL PATIENT CARE IS ENDORSED TO ONCOMING DAYSHIFT NURSE.
--- NOTE | 2022-07-18 07:03 | NUR ---
receive the patinet from the hotel night auditor glo Berg in a stable condition . no sign and symptoms of respiratory distress . no complain of pain at this time . will continue to monitor .
[2022-07-18 08:10] LABS: BASOPHILS % (AUTO) 0.3 % (0.0-2.0); EOSINOPHILS % (AUTO) 0.3 % (0.0-4.0); HEMATOCRIT 39.5 % (36-54); HEMOGLOBIN 13.7 g/dL (14.0-18.0); LYMPHOCYTES % (AUTO) 9.7 % (20.5-51.5); MEAN CORPUSCULAR HEMOGLOBIN 34 pg (27-31); MEAN CORPUSCULAR HGB CONC 35 % (32-36); MEAN CORPUSCULAR VOLUME 98 fL (79.0-98.0); MONOCYTES # (AUTO) 1.2 K/uL (0.0-1.0); NEUTROPHILS % (AUTO) 77.7 % (40.0-70.0); PLATELET COUNT (AUTO) 287 K/uL (130-430); RED BLOOD CELL COUNT(AUTO) 4.05 MIL/uL (4.2-6.2); WHITE BLOOD COUNT (AUTO) 10.3 K/uL (4.8-10.8)
[2022-07-18 08:35] LABS: CALCIUM 8.9 mg/dL (8.4-11.0); CREATININE 0.58 mg/dL (0.55-1.30)
[2022-07-18 09:08] LABS: C-REACTIVE PROTEIN QUANT 32.2 mg/dL (0-0.5)
[2022-07-18] MEDS: DOCUSATE SODIUM 250 MG CAPSULE PO SCH ×2 (10:00→21:04)
[2022-07-18] MEDS: MORPHINE 2 MG/ML INJ. SYRINGE IVP PRN ×3 (10:01→21:07)
[2022-07-18 12:19] VITALS: BP_SYST 128
[2022-07-18 13:08] LABS: ERYTHROCYTE SEDIMENTATION RATE 77 MM/HR (0-15)
--- NOTE | 2022-07-18 14:48 | NUR ---
gave norco 10/325 to patient for comfort of wound dressing change the wound dressing with normal saline . wet to dry dressing . tolerated the procedure . afebrile . no redness on the wound site .
[2022-07-18 16:00] VITALS: BP_SYST 125
--- NOTE | 2022-07-18 18:46 | NUR ---
will endorse to warehouse forklift operator rn for continuity of care
[2022-07-18 19:00] VITALS: BP_SYST 126
[2022-07-18 20:00] VITALS: BP_SYST 126
[2022-07-19] VITALS (8 sets, daily range): BP systolic 96–125
--- NOTE | 2022-07-19 00:46 | NUR ---
SALINE LOCK INFILTRATED TO LFA (20 G). RESTARTED W SALINE LOCK TO LFA 22 G)
[2022-07-19] MEDS: HYDROcodone/ACETAMIN 10-325 MG TAB PO PRN ×2 (02:24→13:55)
[2022-07-19] MEDS: CEFAZOLIN SODIUM 500 MG in D5W 50 ML IV SCH ×3 (05:11→21:30)
[2022-07-19] MEDS: metroNIDAZOLE 250 mg/NS 50 ML IV SCH ×3 (06:06→21:31)
--- NOTE | 2022-07-19 08:00 | NUR ---
Mr Cano has been assessed as indicated. He has been noted to be both pleasant and cooperative.
[2022-07-19 08:24] LABS: BASOPHILS % (AUTO) 0.4 % (0.0-2.0); EOSINOPHILS % (AUTO) 0.1 % (0.0-4.0); HEMATOCRIT 36.8 % (36-54); HEMOGLOBIN 12.7 g/dL (14.0-18.0); LYMPHOCYTES # (AUTO) 1.1 K/uL (1.0-5.5); LYMPHOCYTES % (AUTO) 10.5 % (20.5-51.5); MEAN CORPUSCULAR HEMOGLOBIN 34 pg (27-31); MEAN CORPUSCULAR HGB CONC 35 % (32-36); MEAN CORPUSCULAR VOLUME 97 fL (79.0-98.0); MONOCYTES # (AUTO) 1.5 K/uL (0.0-1.0); MONOCYTES % (AUTO) 14.6 % (1.7-9.3); NEUTROPHILS # (AUTO) 7.7 K/uL (1.8-7.7); NEUTROPHILS % (AUTO) 74.4 % (40.0-70.0); PLATELET COUNT (AUTO) 281 K/uL (130-430); RED BLOOD CELL COUNT(AUTO) 3.78 MIL/uL (4.2-6.2); RED CELL DISTRIBUTION WIDTH 14.2 % (9.0-15.0); WHITE BLOOD COUNT (AUTO) 10.4 K/uL (4.8-10.8)
[2022-07-19 08:50] LABS: CALCIUM 8.6 mg/dL (8.4-11.0); CREATININE 0.63 mg/dL (0.55-1.30)
[2022-07-19] MEDS: DOCUSATE SODIUM 250 MG CAPSULE PO SCH ×2 (09:24→21:30)
[2022-07-19 09:27] LABS: C-REACTIVE PROTEIN QUANT 33.8 mg/dL (0-0.5)
[2022-07-19] MEDS: MORPHINE 2 MG/ML INJ. SYRINGE IVP PRN ×3 (09:33→21:31)
[2022-07-19 14:04] LABS: ERYTHROCYTE SEDIMENTATION RATE 80 MM/HR (0-15)
[2022-07-19] MEDS: ACETAMINOPHEN 325 MG TABLET PO PRN (14:41)
--- NOTE | 2022-07-19 15:30 | NUR ---
Mr Cano has fever and chills. Ice and Tylenol provided. Temp decreased and chills cease
--- NOTE | 2022-07-19 19:15 | NUR ---
Hand off has been given to Akira
--- NOTE | 2022-07-19 20:00 | NUR ---
REPORT RECEIVED FROM [facility]. PATIENT RECEIVED LYING IN BED, AWAKE, NO S/S OF ACUTE DISTRESS. BREATHING EVEN AND UNLABORED. HOB RAISED. IVF INFUSING WELL, IV SITE PATENT, NO SIGNS OF INFILTRATION OR INFECTION NOTED. CALL LIGHT WITH PATIENT. BED IS LOCKED AND AT LOWEST POSITION. DRESSING CHANGE TO BE DONE WITHIN SHIFT. VSS, BP LOW INITALLY, RECHECKED VSS. WILL CONTINUE TO MONITOR.
--- NOTE | 2022-07-19 21:00 | NUR ---
PT HAS 9/10 PAIN, REQUEST MORPHNE. WILL MONITOR BP
--- NOTE | 2022-07-20 | NUR ---
changed abcess dressing. wet to dry, saline wash, wound pad. Pt wants pain medication before next dressing change.
[2022-07-20 01:07] VITALS: BP_SYST 101
[2022-07-20] MEDS: MORPHINE 2 MG/ML INJ. SYRINGE IVP PRN ×4 (04:02→21:58)
[2022-07-20] MEDS: metroNIDAZOLE 250 mg/NS 50 ML IV SCH ×3 (05:25→22:07)
[2022-07-20 05:59] LABS: BASOPHILS % (AUTO) 0.1 % (0.0-2.0); EOSINOPHILS % (AUTO) 0.5 % (0.0-4.0); HEMATOCRIT 36.9 % (36-54); HEMOGLOBIN 12.6 g/dL (14.0-18.0); LYMPHOCYTES # (AUTO) 0.5 K/uL (1.0-5.5); LYMPHOCYTES % (AUTO) 7.4 % (20.5-51.5); MEAN CORPUSCULAR HEMOGLOBIN 33 pg (27-31); MEAN CORPUSCULAR HGB CONC 34 % (32-36); MEAN CORPUSCULAR VOLUME 97 fL (79.0-98.0); MONOCYTES % (AUTO) 13.6 % (1.7-9.3); NEUTROPHILS # (AUTO) 5.5 K/uL (1.8-7.7); NEUTROPHILS % (AUTO) 78.4 % (40.0-70.0); PLATELET COUNT (AUTO) 277 K/uL (130-430); RED BLOOD CELL COUNT(AUTO) 3.79 MIL/uL (4.2-6.2); RED CELL DISTRIBUTION WIDTH 14.1 % (9.0-15.0)
[2022-07-20] MEDS: CEFAZOLIN SODIUM 500 MG in D5W 50 ML IV SCH ×3 (06:26→21:14)
[2022-07-20 06:54] LABS: ALBUMIN 2.3 g/dL (3.4-4.8); CALCIUM 8.6 mg/dL (8.4-11.0); CREATININE 0.61 mg/dL (0.55-1.30); TOTAL BILIRUBIN 0.3 mg/dL (0.0-1.0)
--- NOTE | 2022-07-20 07:25 | NUR ---
OPENING NOTE PT IN BED, RESPIRATIONS EVEN AND NON-LABORED. IV SITE REMAIN INTACT AND PATENT. BED IS DEBORA AND AT LOW POSITION. ENCOURAGED TO USE CALL LIGHT FOR ASSISTANCE. PT C/O MILD PAIN TO HER BUTTOCK. WILL PROVIDE PAIN MEDICATION ORDERED. WILL CONTINUE TO MONITOR.
[2022-07-20 08:19] LABS: ERYTHROCYTE SEDIMENTATION RATE 81 MM/HR (0-15)
[2022-07-20] MEDS: DOCUSATE SODIUM 250 MG CAPSULE PO SCH ×2 (08:38→20:17)
[2022-07-20 09:38] LABS: C-REACTIVE PROTEIN QUANT 34.6 mg/dL (0-0.5)
[2022-07-20] MEDS: HYDROcodone/ACETAMIN 10-325 MG TAB PO PRN ×2 (10:19→20:17)
--- NOTE | 2022-07-20 10:45 | NUR ---
WOUND CARE PROVIDED WOUND CARE. SEE [facility] SHIFT ASSESSMENT
--- NOTE | 2022-07-20 11:05 | NUR ---
PATIENT WAS OBSERVED AMBULATING SAFELY USING THE FWW IN THE HALLWAY. HIS SIGNIFICANT OTHER WAS WITH HIM. PATIENT IS SUPERVISED TO INDEPENDENT WITH HIS FUNCTIONAL MOBILITY. HE IS SAFE TO CONTINUE TO AMBULATE WITH NURSING SUPERVISION. HE DOES NOT NEED FURTHER PHYSICAL THERAPY.
[2022-07-20 11:33] VITALS: BP_SYST 114
[2022-07-20 12:00] VITALS: BP_SYST 140
--- NOTE | 2022-07-20 12:00 | NUR ---
NOTES; PT IN BED, PROVIDED PAIN MEDICATION WITH EFFECTIVE RESULT. DENIES ANY ACUTE DISTRESS OR DISCOMFORT. ENCOURAGED TO USE CALL LIGHT FOR ASSISTANCE. WILL CONTINUE TO MONITOR
--- NOTE | 2022-07-20 15:00 | NUR ---
NOTES PT FORGOT TO PEE IN URINE SAMPLE CUP. REMINDED PT TO PEE IN THE URINE SAMPLE CUP FOR THE URINE ANALYSIS. PT VERBALIZED UNDERSTANDING
[2022-07-20 15:24] VITALS: BP_SYST 127
--- NOTE | 2022-07-20 17:00 | NUR ---
COLLECTED UA; DELIVERED THE URINE SAMPLE TO LAB.
--- NOTE | 2022-07-20 18:43 | NUR ---
CLOSING NOTE PT IN BED, SLEEPING WITH EVEN AND NON-LABORED BREATHING. IV SITE REMAIN PATENT AND INTACT. FAMILY MEMBER AT BEDSIDE. BED IS LOCKED AND AT LOW POSITION. SAFETY PRECAUTION IN PLACED. ENCOURAGED TO USE CALL LIGHT FOR ASSISTANCE. WILL ENDORSE CARE TO BINDER OPERATOR NURSE
[2022-07-20 20:00] VITALS: BP_SYST 121
--- NOTE | 2022-07-20 23:40 | NUR ---
Shift Summary: patient is AAOX4. vitals are stable upon start of shift. introduced myself to patient and updated patient on plan of care for the evening. patient states he understands and has no questions or concerns at the time. patient is currently resting. call light within reach, bed set to low, locked, and alarm on. will continue to monitor. Addendum: 07/21/22 at 0625 by Ishan Casper RN RN hourly rounding done. patient resting. all concerns during shift addressed. patient currently has no questions or concerns at this time. will endorse care to oncoming nurse. call light within reach, bed set to low, locked, and alarm on.
[2022-07-21] VITALS: BP_SYST 124
--- NOTE | 2022-07-21 02:30 | NUR ---
Wound care performed to lt buttock. area edematous with change in skin color around site and red wound bed with slough around edges, with large amount of foul smelling purulent drainage continuously oozing without any intervention. Vipul from wound care asked to look at site and large amount of purulent drainage further expressed with light touch. Drsg applied and message left for surgeon regarding status of wound and drainage observed.
[2022-07-21] MEDS: MORPHINE 2 MG/ML INJ. SYRINGE IVP PRN ×4 (04:33→23:44)
[2022-07-21] MEDS: CEFAZOLIN SODIUM 500 MG in D5W 50 ML IV SCH ×3 (05:01→21:59)
[2022-07-21] MEDS: metroNIDAZOLE 250 mg/NS 50 ML IV SCH ×3 (05:59→22:10)
[2022-07-21 07:18] LABS: BASOPHILS % (AUTO) 0.4 % (0.0-2.0); EOSINOPHILS % (AUTO) 0.1 % (0.0-4.0); HEMATOCRIT 35.7 % (36-54); HEMOGLOBIN 12.3 g/dL (14.0-18.0); LYMPHOCYTES # (AUTO) 0.6 K/uL (1.0-5.5); LYMPHOCYTES % (AUTO) 6.6 % (20.5-51.5); MEAN CORPUSCULAR HEMOGLOBIN 33 pg (27-31); MEAN CORPUSCULAR HGB CONC 35 % (32-36); MEAN CORPUSCULAR VOLUME 97 fL (79.0-98.0); MONOCYTES # (AUTO) 1.5 K/uL (0.0-1.0); MONOCYTES % (AUTO) 16.6 % (1.7-9.3); NEUTROPHILS # (AUTO) 6.7 K/uL (1.8-7.7); NEUTROPHILS % (AUTO) 76.3 % (40.0-70.0); PLATELET COUNT (AUTO) 272 K/uL (130-430); RED CELL DISTRIBUTION WIDTH 14.1 % (9.0-15.0); WHITE BLOOD COUNT (AUTO) 8.8 K/uL (4.8-10.8)
[2022-07-21 07:41] LABS: CALCIUM 8.1 mg/dL (8.4-11.0); CREATININE 0.6 mg/dL (0.55-1.30)
[2022-07-21] MEDS: HYDROcodone/ACETAMIN 10-325 MG TAB PO PRN ×4 (08:12→20:40)
[2022-07-21] MEDS: DOCUSATE SODIUM 250 MG CAPSULE PO SCH ×2 (08:22→21:58)
[2022-07-21 11:21] VITALS: BP_SYST 125
[2022-07-21 13:52] LABS: ERYTHROCYTE SEDIMENTATION RATE 83 MM/HR (0-15)
[2022-07-21 15:30] VITALS: BP_SYST 130
[2022-07-21 20:00] VITALS: BP_SYST 126
[2022-07-22] VITALS (7 sets, daily range): BP systolic 101–123
[2022-07-22] MEDS: CEFAZOLIN SODIUM 500 MG in D5W 50 ML IV SCH ×2 (06:38→14:30)
[2022-07-22] MEDS: metroNIDAZOLE 250 mg/NS 50 ML IV SCH (06:39)
[2022-07-22 06:41] LABS: BASOPHILS % (AUTO) 0.4 % (0.0-2.0); EOSINOPHILS % (AUTO) 0.3 % (0.0-4.0); HEMATOCRIT 35.6 % (36-54); HEMOGLOBIN 12.2 g/dL (14.0-18.0); LYMPHOCYTES # (AUTO) 0.7 K/uL (1.0-5.5); LYMPHOCYTES % (AUTO) 10.2 % (20.5-51.5); MEAN CORPUSCULAR HEMOGLOBIN 33 pg (27-31); MEAN CORPUSCULAR HGB CONC 34 % (32-36); MEAN CORPUSCULAR VOLUME 96 fL (79.0-98.0); MONOCYTES % (AUTO) 14.8 % (1.7-9.3); NEUTROPHILS # (AUTO) 5.2 K/uL (1.8-7.7); NEUTROPHILS % (AUTO) 74.3 % (40.0-70.0); PLATELET COUNT (AUTO) 253 K/uL (130-430); RED CELL DISTRIBUTION WIDTH 14.1 % (9.0-15.0)
[2022-07-22 07:02] LABS: CALCIUM 8.4 mg/dL (8.4-11.0); CREATININE 0.54 mg/dL (0.55-1.30)
--- NOTE | 2022-07-22 08:00 | NUR ---
OPENING NOTE Patient laying in bed prone, no sign of distress. Patient complaining of pain 6/10 in his sacral and buttock region around the abscess. Patient is aware he will going for a procedure with Dr Kilgore this morning, verbalized understanding but wishes to speak with an MD before signing consent. Family is at bedside. All needs met at this time and safety checks made.
[2022-07-22 08:19] LABS: C-REACTIVE PROTEIN QUANT 30.7 mg/dL (0-0.5)
[2022-07-22 08:20] LABS: ERYTHROCYTE SEDIMENTATION RATE 76 MM/HR (0-15)
[2022-07-22] MEDS: DOCUSATE SODIUM 250 MG CAPSULE PO SCH ×2 (08:47→20:42)
--- NOTE | 2022-07-22 09:10 | NUR ---
SURGICAL CONSENT Spoke with ZARA Garcia in PACU and notified her that the patient wishes to speak with Dr Kilgore again before signing surgical consent.
[2022-07-22] MEDS ORDERED: fentaNYL CITRATE/PF 100 MCG/2 ML AMP IVP ONE (11:09)
[2022-07-22] MEDS ORDERED: NS IRRIG SOLN 1000 ML IR ONE (11:09)
[2022-07-22] MEDS ORDERED: LR 1,000 ML IV.SOLN IV ONE (11:09)
[2022-07-22] MEDS ORDERED: PROPOFOL 200MG/ 20ML VIAL (DIPRIVAN) IV ONE (11:09)
[2022-07-22] MEDS ORDERED: NALOXONE HCL 0.4 MG/ML AMP (NARCAN) IVP PRN ×2 (11:30)
[2022-07-22] MEDS ORDERED: HYDROmorphone 1 MG/ML INJ. CARTRIDGE IVP PRN ×2 (11:30)
[2022-07-22] MEDS ORDERED: HYDROmorphone 2 MG/ML VIAL IVP PRN (11:30)
--- NOTE | 2022-07-22 12:20 | NUR ---
PATIENT RETURNED FROM PACU Patient returned from PACU, no sign of distress. Patient complaining of pain in the sacrum and buttocks. Vitals taken and documented. All needs met at this time and safety checks made.
[2022-07-22] MEDS: HYDROcodone/ACETAMIN 10-325 MG TAB PO PRN ×3 (13:09→23:19)
[2022-07-22] MEDS: MORPHINE 2 MG/ML INJ. SYRINGE IVP PRN ×2 (14:30→16:19)
--- NOTE | 2022-07-22 16:15 | NUR ---
Nutrition F/U: Admitting Diagnosis Back Abscess Reviewed Pertinent Medical/Surgical Hx Medical Record Patient Significant Other Medical History Comment: per EMR: 56y male with PMHx arthritis who presented to ED c/o worsening L gluteal pain x 2 days. Pt received I&D on L gluteal area after a spider bite in 2018. Pt is s/p I&D L buttock wound on 07/16. Subjective Information: RD rounded to patient room and witnessed patient in bed lying on stomach. Per pt, he had just returned from Sx for another I&D. Pt endorsed drinking Luis Miguel but stated his GEOLOGY TECHNICIAN/RNs throw them away if he does not drink them right away. Patient verbalized how important he knows Luis Miguel is to his wounds, RD encouraged pt to continue taking Luis Miguel BID when he can. Pt endorses drinking Ensures and stated he sometimes feels full after the ONS so he does not want his food. Patient also stated it is hard to eat as sitting or lying on his back in painful, so he mostly eats laying down in his stomach. RD encouraged patient to eat what he can tolerate. Pt c/o constipation, RD provided FiberOne bars for patient to eat during the day for increased fiber intake. RD noted patient is not receiving wound supplements as recommended by RD on 07/17. These supplements are especially important if patient not able to eat PO well. Current Diet Order/Nutrition Support: Regular x 6 days Patient/Significant Other Able To Verbalize Education Provided Not indicated Pertinent Medications: Metro IV, Colace, [place], Vicodin, Morphine Pertinent Labs: Na 132 L, Cre .54 L Height (Feet) 5 feet Height (Inches) 9.00 inches Weight (Pounds) 135 pounds Weight (Calculated Kilograms) 61.072026 kilograms Patient Weight 61.235 kg Body Mass Index 19.93 kg/m2 Usual Weight 140 lbs %UBW 96 %IBW 84 [place]/Adjusted Body Weight 160#/ 73kg Recent Weight Change 07/17 - Yes - 5# x 2 weeks = ~4% Moderate wt loss, non-severe Weight Status Appropriate Gastrointestinal Symptoms Constipation - per patient 07/22 Last BM No documented BM since admit, per EMR 07/22. Food Allergies No Usual Diet At Home Regular Skin Integrity Comment: Noah Score 20: s/p I&D L buttock wound noted 07/17 and 07/22 No documented edema Current % PO: Poor - 33% x 3 meals documented since 07/20 Estimated Energy Expenditure (kcals/day) 9343-4117 (30-30 kcal/kg for wound healing, wt loss) Estimated Protein Required (g/day) 91-110 (1.5-1.8 g/kg for wound healing, wt loss) Estimated Fluid Required (l/day) 1.8-2.1 (1mL/kcal for wound healing, maintenance) Problem/Etiology/Signs/Symptoms * Increased energy and protein expenditure r/t wound healing a/e/b estimated nutritional needs for wounds; s/p I&D L gluteal abscess (On-going) * Inadequate oral intake r/t fatigue s/p Sx a/e/b 25% PO intake documented (On-going) Expected Outcomes/Goals PO intake provides >85% estimated nutritional needs, nutrition-related labs trending WNL, improvements in skin integrity, weight maintenance, BM q 1-3 days. Dietitian Recommendations * Continue regular diet * Ensure Enlive (durga) BID * Please initiate wound supplements: daily MVI, 500mg VIT C, 220mg ZnSo4 BID x 14 days, Luis Miugel BID * Consider increased bowel regimen High Risk: F/U in 2-3days
--- NOTE | 2022-07-22 16:15 | NUR ---
Dietitian Recommendations * Continue regular diet * Ensure Enlive (durga) BID * Please initiate wound supplements: daily MVI, 500mg VIT C, 220mg ZnSo4 BID x 14 days, Luis Miguel BID * Consider increased bowel regimen Please refer to nutrition F/U for details, thanks! CC, MPH, RDN
[2022-07-22 16:25] LABS: BILIRUBIN,URINE NEGATIVE (NEGATIVE); CLARITY/URINE CLEAR (CLEAR); GLUCOSE,URINE NEGATIVE (NEGATIVE); KETONES,URINE 2+ (NEGATIVE); LEUKOCYTE ESTERASE ,URINE NEGATIVE (NEGATIVE); PROTEIN URINE TRACE (NEGATIVE); UROBILINOGEN,URINE 0.2 (0.2-1.0)
[2022-07-22 16:28] LABS: BLOOD, URINE TRACE (NEGATIVE); COLOR,URINE AMBER (YELLOW)
[2022-07-22 17:02] LABS: RBC,URINE 0-3 /HPF (0-3); WBC,URINE 0-3 /HPF (0-3)
[2022-07-22 17:03] LABS: BACTERIA,URINE FEW /HPF (None Seen)
[2022-07-22 17:06] LABS: MUCUS,URINE None Seen /LPF (None Seen); NITRITE, URINE NEGATIVE (NEGATIVE)
--- NOTE | 2022-07-22 19:16 | NUR ---
CLOSING NOTE Patient resting in bed, no sign of distress. Patient complaining of persistent pain in his left buttock/sacrum throughout the shift; PRN medications provided. . Patient and family have been updated on the plan of care and verbalized understanding. Dressing on the sacrum is clean, dry, and intact. All needs met at this time and safety checks made. Endorsed to shift leader nurse.
--- NOTE | 2022-07-22 20:00 | NUR ---
pt.assessed.v/s assessed values wnl.pt.s/p surgery:abcess;wound;location;lt.buttocks.dsg intact;absent drainage. pain present;tolerable.pt.capable to ambulate w assist device;walker.reposition self.pt.presents iv access location: lt.forearm intact iv lock status.pt.apprised snacks/beverages are available w/in the shift.no requests posited@this hour.call light/telephone w/in access of the pt.
--- NOTE | 2022-07-22 23:15 | NUR ---
pt.requested medication;pain.norco;10/325mg po administered.to assess the efficacy of the pain medication per pain mgx protocol.no additional requests posited@this hour.
--- NOTE | 2022-07-23 | NUR ---
pt.assessed.v/s assessed values wnl.pain present,tolerable.no requests posited@this hour.pt.capable to reposition self. call light/telephone w/in access of the pt.
[2022-07-23 01:01] VITALS: BP_SYST 105
--- NOTE | 2022-07-23 06:00 | NUR ---
pt.assessed.pt.ambulated to the restroom;gait assessed gait status wnl.pt.utilizing the walker.no c/o pain,nausea. call light/telephone w/in access of the pt.
[2022-07-23 06:45] LABS: CALCIUM 8.3 mg/dL (8.4-11.0); CREATININE 0.61 mg/dL (0.55-1.30)
--- NOTE | 2022-07-23 07:55 | NUR ---
Initial Received patient alert, A/Ox4, verbalizes needs and concern. complain pain burning to sacral area, respiration even and unlabored no sign of distress, vital signs w/in norm.Saline lock to left forearm patent ,no signs of infiltration. All safety secure, continue to monitor.
[2022-07-23 08:02] LABS: BASOPHILS % (AUTO) 0.4 % (0.0-2.0); EOSINOPHILS % (AUTO) 0.5 % (0.0-4.0); HEMATOCRIT 36.1 % (36-54); HEMOGLOBIN 12.4 g/dL (14.0-18.0); LYMPHOCYTES % (AUTO) 12.9 % (20.5-51.5); MEAN CORPUSCULAR HEMOGLOBIN 33 pg (27-31); MEAN CORPUSCULAR HGB CONC 34 % (32-36); MEAN CORPUSCULAR VOLUME 96 fL (79.0-98.0); MONOCYTES # (AUTO) 1.2 K/uL (0.0-1.0); MONOCYTES % (AUTO) 16.3 % (1.7-9.3); NEUTROPHILS # (AUTO) 5.2 K/uL (1.8-7.7); NEUTROPHILS % (AUTO) 69.9 % (40.0-70.0); PLATELET COUNT (AUTO) 280 K/uL (130-430); RED BLOOD CELL COUNT(AUTO) 3.75 MIL/uL (4.2-6.2); RED CELL DISTRIBUTION WIDTH 14.5 % (9.0-15.0); WHITE BLOOD COUNT (AUTO) 7.5 K/uL (4.8-10.8)
[2022-07-23 08:11] VITALS: BP_SYST 123
[2022-07-23 08:30] LABS: C-REACTIVE PROTEIN QUANT 28.4 mg/dL (0-0.5)
[2022-07-23] MEDS: HYDROcodone/ACETAMIN 10-325 MG TAB PO PRN ×3 (08:34→18:45)
[2022-07-23] MEDS: DOCUSATE SODIUM 250 MG CAPSULE PO SCH ×2 (08:37→21:00)
[2022-07-23] MEDS: MORPHINE 2 MG/ML INJ. SYRINGE IVP PRN (10:35)
[2022-07-23 11:21] VITALS: BP_SYST 115
[2022-07-23 12:08] LABS: ERYTHROCYTE SEDIMENTATION RATE 67 MM/HR (0-15)
--- NOTE | 2022-07-23 13:20 | NUR ---
Rounding Patient verbalizes going home today, waiting for Dr. Mancia
[2022-07-23 15:27] VITALS: BP_SYST 115
--- NOTE | 2022-07-23 19:01 | NUR ---
closing notes In bed, family at bedside. Complain of pain, was medicated. Antibiotics is running. Will endorse.
--- NOTE | 2022-07-23 20:43 | NUR ---
CONSULTATION CALLED FOR DR. Bossman HERNADNEZ FOR CONSULT OF POSSIBLE COLON PERFORATION ORDER BY DR. Madhu ARIZA SPOKE WITH ANGLE
[2022-07-24] MEDS: MORPHINE 2 MG/ML INJ. SYRINGE IVP PRN ×4 (01:01→12:48)
[2022-07-24] MEDS: HYDROcodone/ACETAMIN 10-325 MG TAB PO PRN ×2 (01:15→14:46)
[2022-07-24 07:15] LABS: BASOPHILS % (AUTO) 0.4 % (0.0-2.0); EOSINOPHILS % (AUTO) 0.2 % (0.0-4.0); HEMATOCRIT 34.3 % (36-54); HEMOGLOBIN 11.9 g/dL (14.0-18.0); LYMPHOCYTES # (AUTO) 0.8 K/uL (1.0-5.5); LYMPHOCYTES % (AUTO) 12.1 % (20.5-51.5); MEAN CORPUSCULAR HEMOGLOBIN 33 pg (27-31); MEAN CORPUSCULAR HGB CONC 35 % (32-36); MEAN CORPUSCULAR VOLUME 95 fL (79.0-98.0); MONOCYTES % (AUTO) 14.3 % (1.7-9.3); NEUTROPHILS # (AUTO) 5.1 K/uL (1.8-7.7); PLATELET COUNT (AUTO) 278 K/uL (130-430); RED BLOOD CELL COUNT(AUTO) 3.61 MIL/uL (4.2-6.2); RED CELL DISTRIBUTION WIDTH 13.8 % (9.0-15.0)
[2022-07-24 07:27] LABS: ALBUMIN 2.1 g/dL (3.4-4.8); CALCIUM 8.1 mg/dL (8.4-11.0); CREATININE 0.53 mg/dL (0.55-1.30); TOTAL BILIRUBIN 0.7 mg/dL (0.0-1.0)
[2022-07-24 08:15] LABS: ERYTHROCYTE SEDIMENTATION RATE 62 MM/HR (0-15)
[2022-07-24] MEDS: DOCUSATE SODIUM 250 MG CAPSULE PO SCH ×2 (09:29→21:49)
--- NOTE | 2022-07-24 11:19 | NUR ---
patient went to [facility] procedure.
[2022-07-24 11:20] VITALS: BP_SYST 117
--- NOTE | 2022-07-24 11:28 | NUR ---
MRI questionnaire done for patient, Patient said he had metal in eye before. Dr. Mancia made aware. MRCP not done.
[2022-07-24] MEDS ORDERED: LORazepam 2 MG/ML VIAL IVP PRN (12:00)
[2022-07-24] MEDS: LORazepam 1 MG TABLET PO ONE ×2 (12:15→16:43)
[2022-07-24] MEDS ORDERED: CEFEPIME 2 GM in D5W 100 ML IV SCH (15:00)
[2022-07-24] MEDS ORDERED: PIPERACILLIN/TAZO 4.5GM/DEX-IS 100 ML IV ONE (16:00)
[2022-07-24 16:22] VITALS: BP_SYST 119
[2022-07-24] MEDS: ACETAMINOPHEN 325 MG TABLET PO PRN (16:42)
[2022-07-24] MEDS: VANCOMYCIN HCL 1,000 MG in NS 250 ML IV SCH (16:47)
--- NOTE | 2022-07-24 19:26 | NUR ---
Report given to slot shift manager RN for continuity of care. Patient stable condition.
--- NOTE | 2022-07-24 19:26 | NUR ---
Report given to shift mechanic RN for continuity of care. Patient stable condition.
--- NOTE | 2022-07-24 19:27 | NUR ---
Report given to night coordinator RN for continuity of care. Patient stable condition.
[2022-07-24 20:50] VITALS: BP_SYST 124
[2022-07-24] MEDS: metroNIDAZOLE 500 MG TABLET PO SCH (21:49)
[2022-07-24] MEDS: PIPERACILLIN/TAZO 4.5GM/DEX-IS 100 ML IV SCH (21:50)
[2022-07-25 05:16] VITALS: BP_SYST 108
[2022-07-25] MEDS: VANCOMYCIN HCL 1,000 MG in NS 250 ML IV SCH ×2 (05:19→17:41)
--- NOTE | 2022-07-25 07:00 | NUR ---
Report received from shift boss RN for continuity of care. Patient in stable condition.
[2022-07-25] MEDS: PIPERACILLIN/TAZO 4.5GM/DEX-IS 100 ML IV SCH ×3 (07:10→21:49)
[2022-07-25 08:00] VITALS: BP_SYST 102
[2022-07-25 08:08] LABS: C-REACTIVE PROTEIN QUANT 84.6 mg/dL (0-0.5); CALCIUM 7.8 mg/dL (8.4-11.0); CREATININE 0.58 mg/dL (0.55-1.30)
[2022-07-25 08:28] LABS: BASOPHILS % (AUTO) 0.3 % (0.0-2.0); EOSINOPHILS % (AUTO) 0.3 % (0.0-4.0); HEMATOCRIT 33.4 % (36-54); HEMOGLOBIN 11.5 g/dL (14.0-18.0); LYMPHOCYTES # (AUTO) 0.8 K/uL (1.0-5.5); LYMPHOCYTES % (AUTO) 12.7 % (20.5-51.5); MEAN CORPUSCULAR HEMOGLOBIN 33 pg (27-31); MEAN CORPUSCULAR HGB CONC 34 % (32-36); MEAN CORPUSCULAR VOLUME 96 fL (79.0-98.0); MONOCYTES # (AUTO) 0.9 K/uL (0.0-1.0); MONOCYTES % (AUTO) 13.5 % (1.7-9.3); NEUTROPHILS # (AUTO) 4.8 K/uL (1.8-7.7); NEUTROPHILS % (AUTO) 73.2 % (40.0-70.0); PLATELET COUNT (AUTO) 274 K/uL (130-430); RED BLOOD CELL COUNT(AUTO) 3.48 MIL/uL (4.2-6.2); WHITE BLOOD COUNT (AUTO) 6.5 K/uL (4.8-10.8)
[2022-07-25] MEDS: DOCUSATE SODIUM 250 MG CAPSULE PO SCH ×2 (08:28→21:50)
[2022-07-25] MEDS: metroNIDAZOLE 500 MG TABLET PO SCH ×2 (08:29→21:48)
[2022-07-25] MEDS: HYDROcodone/ACETAMIN 10-325 MG TAB PO PRN ×2 (08:30→17:43)
[2022-07-25 09:56] LABS: ERYTHROCYTE SEDIMENTATION RATE 41 MM/HR (0-15)
--- NOTE | 2022-07-25 11:01 | NUR ---
Nutrition F/U: Admitting Diagnosis Back Abscess Reviewed Pertinent Medical/Surgical Hx Medical Record Patient Significant Other Medical History Comment: per EMR: 56y male with PMHx arthritis who presented to ED c/o worsening L gluteal pain x 2 days. Pt received I&D on L gluteal area after a spider bite in 2018. Pt is s/p I&D L buttock wound on 07/16 and 07/22. 07/25: Pt now has very large wound on L buttock that has foul smell and pus. Subjective Information: RD rounded to patient room and witnessed patient in bed with family members with him. Pt states his appetite is good but he doesn't like the food here (c/w average documented PO of 20% x 11 meals.) RD suggested bringing him daily menus so he could choose and he was very happy about that (RD alerted community dietitian of this change and entered a note in computrition). Pt reports LMB of yesterday and that he is not feeling as constipated anymore. Pt reports consuming about 1 Luis Miguel/ day and RD encouraged him to try both servings, if he could. Also, he reports drinking most of his Ensures. RD noted patient is not receiving wound supplements as recommended by RD on 07/17. These supplements are especially important if patient not able to eat PO well. Current Diet Order/Nutrition Support: Regular x 8 days Patient/Significant Other Able To Verbalize Education Provided Not indicated Pertinent Medications: Metro IV, Colace, [place], Narcan, Morphine, Antibacterials, Penicillin New*Pertinent Labs: Na 132 L, Cre .53/0.58 wnl, BUN 7 L, BG 108 H Height (Feet) 5 feet Height (Inches) 9.00 inches Weight (Pounds) 135 pounds Weight (Calculated Kilograms) 61.379870 kilograms Patient Weight 61.235 kg Body Mass Index 19.93 kg/m2 Usual Weight 140 lbs %UBW 96 %IBW 84 [place]/Adjusted Body Weight 160#/ 73kg Recent Weight Change 07/17 - Yes - 5# x 2 weeks = ~4% Moderate wt loss, non-severe Weight Status Appropriate Gastrointestinal Symptoms None per pt Last BM Per pt: 07/24 1x Food Allergies No Usual Diet At Home Regular Skin Integrity Comment: Noah Score 19: s/p I&D L buttock wound noted 07/17 and 07/22. 07/25: Per EMR wound is now "full of puss and foul smell" No documented edema Current % PO: Poor - avg of 20% x 11 meals documented since 07/21 Estimated Energy Expenditure (kcals/day) 0893-5373 (30-30 kcal/kg for wound healing, wt loss) Estimated Protein Required (g/day) 91-110 (1.5-1.8 g/kg for wound healing, wt loss) Estimated Fluid Required (l/day) 1.8-2.1 (1mL/kcal for wound healing, maintenance) Problem/Etiology/Signs/Symptoms * Increased energy and protein expenditure r/t wound healing a/e/b estimated nutritional needs for wounds; s/p I&D L gluteal abscess (On-going) * Inadequate oral intake r/t fatigue s/p Sx a/e/b 20% PO intake documented (On-going) Expected Outcomes/Goals PO intake provides >85% estimated nutritional needs, nutrition-related labs trending WNL, improvements in skin integrity, weight maintenance, BM q 1-3 days. Dietitian Recommendations * Continue regular diet * Continue Ensure Enlive (durga) BID and Luis Miguel BID * Please initiate wound supplements: daily MVI, 500mg VIT C, 220mg ZnSo4 BID x 14 days High Risk: F/U in 2-3days
--- NOTE | 2022-07-25 11:04 | NUR ---
Dietitian Recommendations * Continue regular diet * Continue Ensure Enlive (durga) BID and Luis Miguel BID * Please initiate wound supplements: daily MVI, 500mg VIT C, 220mg ZnSo4 BID x [address]
[2022-07-25 12:00] VITALS: BP_SYST 104
[2022-07-25] MEDS: MORPHINE 2 MG/ML INJ. SYRINGE IVP PRN ×2 (13:19→21:50)
--- NOTE | 2022-07-25 13:59 | NUR ---
Changed patient's dressing on left buttock. No distress noted. Medicated patient prior to dressing change.
[2022-07-25 16:00] VITALS: BP_SYST 104
--- NOTE | 2022-07-25 18:14 | NUR ---
Dr. cohen came to see patient.
[2022-07-25 20:22] VITALS: BP_SYST 106
[2022-07-26 00:30] VITALS: BP_SYST 108
[2022-07-26] MEDS: MORPHINE 2 MG/ML INJ. SYRINGE IVP PRN (06:39)
[2022-07-26] MEDS: PIPERACILLIN/TAZO 4.5GM/DEX-IS 100 ML IV SCH ×3 (06:39→20:25)
[2022-07-26] MEDS: VANCOMYCIN HCL 1,000 MG in NS 250 ML IV SCH ×2 (06:40→17:40)
[2022-07-26 07:00] VITALS: BP_SYST 138
[2022-07-26] MEDS ORDERED: MULTIVITAMINS TAB 1 TABLET PO SCH (07:45)
[2022-07-26 07:50] LABS: BASOPHILS # (AUTO) 0.1 K/uL (0.0-0.2); BASOPHILS % (AUTO) 0.7 % (0.0-2.0); EOSINOPHILS % (AUTO) 0.5 % (0.0-4.0); HEMATOCRIT 33.7 % (36-54); HEMOGLOBIN 11.7 g/dL (14.0-18.0); MEAN CORPUSCULAR HEMOGLOBIN 33 pg (27-31); MEAN CORPUSCULAR HGB CONC 35 % (32-36); MEAN CORPUSCULAR VOLUME 95 fL (79.0-98.0); MONOCYTES % (AUTO) 13.6 % (1.7-9.3); NEUTROPHILS # (AUTO) 5.3 K/uL (1.8-7.7); NEUTROPHILS % (AUTO) 72.2 % (40.0-70.0); PLATELET COUNT (AUTO) 265 K/uL (130-430); RED BLOOD CELL COUNT(AUTO) 3.54 MIL/uL (4.2-6.2); RED CELL DISTRIBUTION WIDTH 14.1 % (9.0-15.0); WHITE BLOOD COUNT (AUTO) 7.3 K/uL (4.8-10.8)
[2022-07-26 07:56] LABS: C-REACTIVE PROTEIN QUANT 22.7 mg/dL (0-0.5); CALCIUM 8.1 mg/dL (8.4-11.0); CREATININE 1.19 mg/dL (0.55-1.30)
[2022-07-26 08:00] VITALS: BP_SYST 138
[2022-07-26 08:58] LABS: ERYTHROCYTE SEDIMENTATION RATE 68 MM/HR (0-15)
[2022-07-26] MEDS ORDERED: NALOXONE HCL 0.4 MG/ML AMP (NARCAN) IVP PRN ×2 (10:30)
[2022-07-26] MEDS ORDERED: HYDROcodone/ACETAMIN 5-325 MG TAB (NORCO/ VICODIN) PO PRN (10:30)
[2022-07-26] MEDS: DOCUSATE SODIUM 250 MG CAPSULE PO SCH ×2 (10:37→20:24)
[2022-07-26] MEDS: metroNIDAZOLE 500 MG TABLET PO SCH ×2 (10:37→20:24)
[2022-07-26] MEDS: ASCORBIC ACID 500 MG TABLET PO SCH (10:38)
[2022-07-26] MEDS: MULTIVITAMINS TAB 1 TABLET PO SCH (10:38)
[2022-07-26] MEDS: HYDROcodone/ACETAMIN 10-325 MG TAB PO PRN ×3 (10:46→20:23)
[2022-07-26 12:00] VITALS: BP_SYST 120
[2022-07-26] MEDS ORDERED: DIATR MEGLU/DIATRIZ SOD 30 ML SOLUTION PO ONE (12:21)
[2022-07-26 16:00] VITALS: BP_SYST 132
--- NOTE | 2022-07-26 19:43 | NUR ---
End of Shift Summary: Patient has maintained a good composure throughout the day despite the pain. Patient had visits from his mother and girlfriend through the bulk of the shift. Patient was taken for CT exam and Radiologist called RN and gave verbal results. Advised both Dr. Mancia and Dr. Garces of CT results. Renewed patients pain medicine orders during the morning and gave medicine per patient request q4h PRN. Currently, patient is sleeping at end of shift with no outward manifestations of pain at this time.
[2022-07-26 20:00] VITALS: BP_SYST 126
[2022-07-27] VITALS: BP_SYST 115
[2022-07-27] MEDS: PIPERACILLIN/TAZO 4.5GM/DEX-IS 100 ML IV SCH ×3 (04:35→20:20)
[2022-07-27] MEDS: VANCOMYCIN HCL 1,000 MG in NS 250 ML IV SCH ×2 (04:35→17:00)
--- NOTE | 2022-07-27 05:31 | NUR ---
Patient slept the entire night. No acute distress noted. C/O pain at the beginning of the shift prn given. Will continue to monitor.
[2022-07-27] MEDS: HYDROcodone/ACETAMIN 10-325 MG TAB PO PRN ×3 (05:48→20:19)
[2022-07-27 06:37] LABS: BASOPHILS % (AUTO) 0.4 % (0.0-2.0); EOSINOPHILS % (AUTO) 0.6 % (0.0-4.0); HEMATOCRIT 31.8 % (36-54); HEMOGLOBIN 10.8 g/dL (14.0-18.0); LYMPHOCYTES # (AUTO) 1.1 K/uL (1.0-5.5); LYMPHOCYTES % (AUTO) 15.3 % (20.5-51.5); MEAN CORPUSCULAR HEMOGLOBIN 33 pg (27-31); MEAN CORPUSCULAR HGB CONC 34 % (32-36); MEAN CORPUSCULAR VOLUME 97 fL (79.0-98.0); MONOCYTES # (AUTO) 0.8 K/uL (0.0-1.0); MONOCYTES % (AUTO) 11.1 % (1.7-9.3); NEUTROPHILS # (AUTO) 5.3 K/uL (1.8-7.7); NEUTROPHILS % (AUTO) 72.6 % (40.0-70.0); PLATELET COUNT (AUTO) 320 K/uL (130-430); RED BLOOD CELL COUNT(AUTO) 3.28 MIL/uL (4.2-6.2); RED CELL DISTRIBUTION WIDTH 14.3 % (9.0-15.0); WHITE BLOOD COUNT (AUTO) 7.3 K/uL (4.8-10.8)
[2022-07-27 07:00] VITALS: BP_SYST 118
[2022-07-27 07:25] LABS: ALBUMIN 1.9 g/dL (3.4-4.8); C-REACTIVE PROTEIN QUANT 20.2 mg/dL (0-0.5); CALCIUM 7.6 mg/dL (8.4-11.0); CREATININE 1.7 mg/dL (0.55-1.30); TOTAL BILIRUBIN 0.7 mg/dL (0.0-1.0)
[2022-07-27] MEDS: MULTIVITAMINS TAB 1 TABLET PO SCH (09:39)
[2022-07-27] MEDS: DOCUSATE SODIUM 250 MG CAPSULE PO SCH ×2 (09:39→20:18)
[2022-07-27] MEDS: ASCORBIC ACID 500 MG TABLET PO SCH (09:41)
[2022-07-27] MEDS: metroNIDAZOLE 500 MG TABLET PO SCH ×2 (09:42→20:19)
[2022-07-27 10:32] LABS: ERYTHROCYTE SEDIMENTATION RATE 77 MM/HR (0-15)
--- NOTE | 2022-07-27 10:49 | NUR ---
CONSULTATION PAGED REASON FOR CONSULTATION POSSIBLE COLITIS WAS CONSULT CALED?Y PERSON WHO WAS NOTIFIED:YOLI CONSULTING PHYSICIAN:KIANA FAYE (SISSY JOSÉ TREE PULLER) PROGRAM COORDINATOR SPECIALTY:GI PROGRAM COORDINATOR PHONE NUMBER:[phone] REQUESTING PHYSICIAN:THOMAS GOODWIN
--- NOTE | 2022-07-27 10:54 | NUR ---
CONSULTATION PAGED/CALLED Reason for Consultation: []possible colitis Person Who was Notified: []Hafsa Consulting Physician: [] Osvaldo Green Filament Welder Specialty: []GI Ordering Physician: []Piotr Cornelius
[2022-07-27 11:07] VITALS: BP_SYST 100
[2022-07-27 16:10] VITALS: BP_SYST 119
[2022-07-27 20:00] VITALS: BP_SYST 109
--- NOTE | 2022-07-27 22:15 | NUR ---
Patient in bed. No acute distress noted. C/O pain prn given. Will continue to monitor.
[2022-07-28] MEDS: HYDROcodone/ACETAMIN 10-325 MG TAB PO PRN ×2 (02:55→11:05)
[2022-07-28] MEDS: PIPERACILLIN/TAZO 4.5GM/DEX-IS 100 ML IV SCH ×3 (03:58→20:27)
[2022-07-28] MEDS: VANCOMYCIN HCL 1,000 MG in NS 250 ML IV SCH ×2 (03:59→17:29)
[2022-07-28 06:51] LABS: C-REACTIVE PROTEIN QUANT 18.1 mg/dL (0-0.5); CALCIUM 7.9 mg/dL (8.4-11.0); CREATININE 1.68 mg/dL (0.55-1.30)
[2022-07-28 07:08] LABS: BASOPHILS % (AUTO) 0.4 % (0.0-2.0); EOSINOPHILS % (AUTO) 0.2 % (0.0-4.0); HEMATOCRIT 31.2 % (36-54); HEMOGLOBIN 10.9 g/dL (14.0-18.0); LYMPHOCYTES # (AUTO) 0.9 K/uL (1.0-5.5); LYMPHOCYTES % (AUTO) 9.4 % (20.5-51.5); MEAN CORPUSCULAR HEMOGLOBIN 34 pg (27-31); MEAN CORPUSCULAR HGB CONC 35 % (32-36); MEAN CORPUSCULAR VOLUME 96 fL (79.0-98.0); MONOCYTES # (AUTO) 1.1 K/uL (0.0-1.0); MONOCYTES % (AUTO) 11.5 % (1.7-9.3); NEUTROPHILS # (AUTO) 7.2 K/uL (1.8-7.7); NEUTROPHILS % (AUTO) 78.5 % (40.0-70.0); PLATELET COUNT (AUTO) 340 K/uL (130-430); RED BLOOD CELL COUNT(AUTO) 3.24 MIL/uL (4.2-6.2); RED CELL DISTRIBUTION WIDTH 14.5 % (9.0-15.0); WHITE BLOOD COUNT (AUTO) 9.2 K/uL (4.8-10.8)
[2022-07-28 08:00] VITALS: BP_SYST 121
[2022-07-28 08:43] LABS: ERYTHROCYTE SEDIMENTATION RATE 92 MM/HR (0-15)
[2022-07-28 08:58] VITALS: BP_SYST 109
[2022-07-28] MEDS ORDERED: MORPHINE 2 MG/ML INJ. SYRINGE ONE (08:59)
[2022-07-28] MEDS: DOCUSATE SODIUM 250 MG CAPSULE PO SCH ×2 (09:00→20:25)
[2022-07-28] MEDS: ASCORBIC ACID 500 MG TABLET PO SCH (09:00)
[2022-07-28] MEDS ORDERED: MORPHINE 2 MG/ML INJ. SYRINGE IVP ONE (09:00)
[2022-07-28] MEDS: metroNIDAZOLE 500 MG TABLET PO SCH ×2 (09:00→20:24)
[2022-07-28] MEDS: MULTIVITAMINS TAB 1 TABLET PO SCH (09:00)
[2022-07-28] MEDS ORDERED: LIDOCAINE 1%, 20 ML MDV 20 ML ONE (09:10)
[2022-07-28 11:07] LABS: HEPATITIS A AB, IgM Negative (Negative); HEPATITIS B CORE AB, IgM Negative (Negative); HEPATITIS B SURFACE AG Negative (Negative)
[2022-07-28 11:10] VITALS: BP_SYST 124
[2022-07-28 12:29] LABS: INR 2.6 (0.80-1.20); PROTHROMBIN TIME 25.2 SECS (9.5-12.5)
--- NOTE | 2022-07-28 13:34 | NUR ---
Nutrition F/U: Admitting Diagnosis Back Abscess Reviewed Pertinent Medical/Surgical Hx Medical Record Patient Significant Other Medical History Comment: per EMR: 56y male with PMHx arthritis who presented to ED c/o worsening L gluteal pain x 2 days. Pt received I&D on L gluteal area after a spider bite in 2019. Pt is s/p I&D L buttock wound on 07/16 and 07/22. 07/25: Pt now has very large wound on L buttock that has foul smell and pus. Per LOS meeting 07/28: pt may need diverting colostomy d/t potential perforated colon. Subjective Information: RD rounded to patient room and witnessed patient in bed with family members with him. Pt was resting on his stomach. The family told me that he has been NPO all day today and that he is hungry, thirsty and tired. Family reported that he is having a procedure today and will be NPO until that is over. Pts LMB per EMR: 07/28 x 1. Current Diet Order/Nutrition Support: Clear x 0 Patient/Significant Other Able To Verbalize Education Provided Not indicated NEW* Pertinent Medications: Golytely, dulcolax, Metro IV, Colace, Donner, Narcan, Morphine, Antibacterials, MVI, Piperacillin/tazobactam, VIT C, Zinc sulfate New*Pertinent Labs: Na WNL, Cre 1.68 H, BUN 14 H, BG WNL,WBC 7.3/9.2 Trending up Height (Feet) 5 feet Height (Inches) 9.00 inches Weight (Pounds) 135 pounds Weight (Calculated Kilograms) 61.215738 kilograms Patient Weight 61.235 kg Body Mass Index 19.93 kg/m2 Usual Weight 140 lbs %UBW 96 %IBW 84 [place]/Adjusted Body Weight 160#/ 73kg Recent Weight Change 07/17 - Yes - 5# x 2 weeks = ~4% Moderate wt loss, non-severe Weight Status Appropriate Gastrointestinal Symptoms None per pt Last BM Per EMR: 07/28 x 1 Food Allergies No Usual Diet At Home Regular Skin Integrity Comment: Noah Score 16 s/p I&D L buttock wound noted 07/17 and 07/22. 07/25: Per EMR wound is now "full of puss and foul smell" No documented edema Current % PO: Poor- pt is NPO x 1 day Estimated Energy Expenditure (kcals/day) 0853-9928 (30-30 kcal/kg for wound healing, wt loss) Estimated Protein Required (g/day) 91-110 (1.5-1.8 g/kg for wound healing, wt loss) Estimated Fluid Required (l/day) 1.8-2.1 (1mL/kcal for wound healing, maintenance) Problem/Etiology/Signs/Symptoms * Increased energy and protein expenditure r/t wound healing a/e/b estimated nutritional needs for wounds; s/p I&D L gluteal abscess (On-going) * Inadequate oral intake r/t fatigue s/p Sx a/e/b 30% PO intake documented (On-going) *Inadequate energy intake r/t preparation for medical procedure aeb clear liquid and NPO diet x 2 days (NEW) Expected Outcomes/Goals PO intake provides >85% estimated nutritional needs, nutrition-related labs trending WNL, improvements in skin integrity, weight maintenance, BM q 1-3 days. Dietitian Recommendations * Consider adjusting diet order to reflect NPO status. *If/ when medically appropriate, consider resuming clear liquid diet. * Continue wound supplements: daily MVI, 500mg VIT C, 220mg ZnSo4 BID x 14 days High Risk: F/U in 2-3days
--- NOTE | 2022-07-28 13:38 | NUR ---
Dietitian Recommendations * Consider adjusting diet order to reflect NPO status. *If/ when medically appropriate, consider resuming clear liquid diet. * Continue wound supplements: daily MVI, 500mg VIT C, 220mg ZnSo4 BID x 14 days GS, RD Please refer to RD F/U for more details
[2022-07-28] MEDS ORDERED: HYDROcodone/ACETAMIN 5-325 MG TAB (NORCO/ VICODIN) PO PRN (14:15)
[2022-07-28] MEDS ORDERED: NALOXONE HCL 0.4 MG/ML AMP (NARCAN) IVP PRN (14:45)
[2022-07-28] MEDS ORDERED: HYDROmorphone 1 MG/ML INJ. CARTRIDGE IVP PRN (14:45)
[2022-07-28] MEDS ORDERED: METOCLOPRAMIDE HCL 10 MG/2 ML VIAL IVP PRN (14:45)
[2022-07-28] MEDS ORDERED: MEPERIDINE HCL/PF 25 MG/ML DISP.SYRIN IVP PRN (14:45)
[2022-07-28] MEDS ORDERED: ONDANSETRON HCL 4 MG/2 ML VIAL IVP PRN ×2 (14:45→15:30)
[2022-07-28] MEDS: HYDROmorphone 1 MG/ML INJ. CARTRIDGE IVP PRN ×3 (15:24→15:58)
[2022-07-28] MEDS ORDERED: HYDROmorphone 1 MG/ML INJ. CARTRIDGE ONE ×3 (15:24→16:27)
[2022-07-28] MEDS ORDERED: BUPIVACAINE /EPINEPHRINE/PF 0.25% 30 ML VIAL ONE (15:25)
[2022-07-28] MEDS ORDERED: NS IRRIG SOLN 5000 ML IR ONE (15:25)
[2022-07-28] MEDS ORDERED: SEVOFLURANE 15 MIN GAS INH ONE (15:25)
[2022-07-28] MEDS ORDERED: GLYCOPYRROLATE 0.2 MG/ML VIAL ONE (15:25)
[2022-07-28] MEDS ORDERED: PROPOFOL 200MG/ 20ML VIAL (DIPRIVAN) IV ONE (15:25)
[2022-07-28] MEDS ORDERED: CEFAZOLIN 2 GM IVPB PREMIX 50 ML IV ONE (15:25)
[2022-07-28] MEDS ORDERED: NS 1000 ML IV.SOLN IV ONE (15:25)
[2022-07-28] MEDS ORDERED: NS IRRIG SOLN 1000 ML IR ONE (15:25)
[2022-07-28] MEDS ORDERED: NEOSTIGMINE METHYLSULFATE 1 MG/ML, 10 ML VIAL ONE (15:25)
[2022-07-28] MEDS ORDERED: ROCURONIUM BROMIDE 10 MG/ML (ZEMURON) ONE (15:25)
[2022-07-28] MEDS ORDERED: NACL 0.9% 1,000 ML IV SCH (15:30)
[2022-07-28] MEDS ORDERED: HYDROmorphone 2 MG/ML VIAL IVP PRN (15:30)
[2022-07-28 15:39] VITALS: BP_SYST 130
[2022-07-28] MEDS ORDERED: BISACODYL 5 MG TABLET.DR (DULCOLAX) PO ONE (17:00)
[2022-07-28] MEDS ORDERED: GOLYTELY / COLYTE SOLUTION 4 LITERS PO ONE (18:00)
[2022-07-28 20:00] VITALS: BP_SYST 116
[2022-07-28] MEDS: HYDROmorphone 1 MG/ML INJ. CARTRIDGE IM PRN (20:25)
--- NOTE | 2022-07-28 23:22 | NUR ---
Patient in bed. No acute distress noted. C/O pain prn given. Will continue to monitor.
[2022-07-29] MEDS: HYDROcodone/ACETAMIN 10-325 MG TAB PO PRN ×3 (00:12→11:24)
[2022-07-29] MEDS: HYDROmorphone 1 MG/ML INJ. CARTRIDGE IM PRN (00:12)
--- NOTE | 2022-07-29 01:01 | NUR ---
Patient refusing bowel prep due to severe pain. Call placed to Dr. Mark koroma. Awaiting return call.
[2022-07-29 01:05] VITALS: BP_SYST 115
[2022-07-29] MEDS: PIPERACILLIN/TAZO 4.5GM/DEX-IS 100 ML IV SCH ×3 (04:33→21:24)
[2022-07-29] MEDS: VANCOMYCIN HCL 1,000 MG in NS 250 ML IV SCH ×2 (04:34→17:34)
--- NOTE | 2022-07-29 06:24 | NUR ---
Call placed to Dr. Flores. Awaiting return call.
--- NOTE | 2022-07-29 06:28 | NUR ---
Consent signed for the PICC line.
[2022-07-29 06:53] LABS: BASOPHILS % (AUTO) 0.4 % (0.0-2.0); EOSINOPHILS # (AUTO) 0.1 K/uL (0.0-0.4); EOSINOPHILS % (AUTO) 0.9 % (0.0-4.0); HEMATOCRIT 29.2 % (36-54); LYMPHOCYTES # (AUTO) 1.2 K/uL (1.0-5.5); LYMPHOCYTES % (AUTO) 14.3 % (20.5-51.5); MEAN CORPUSCULAR HEMOGLOBIN 33 pg (27-31); MEAN CORPUSCULAR HGB CONC 34 % (32-36); MEAN CORPUSCULAR VOLUME 96 fL (79.0-98.0); MONOCYTES # (AUTO) 0.7 K/uL (0.0-1.0); NEUTROPHILS # (AUTO) 6.2 K/uL (1.8-7.7); NEUTROPHILS % (AUTO) 75.4 % (40.0-70.0); PLATELET COUNT (AUTO) 343 K/uL (130-430); RED BLOOD CELL COUNT(AUTO) 3.05 MIL/uL (4.2-6.2); RED CELL DISTRIBUTION WIDTH 14.4 % (9.0-15.0); WHITE BLOOD COUNT (AUTO) 8.2 K/uL (4.8-10.8)
[2022-07-29 07:30] LABS: INR 1.4 (0.80-1.20); PROTHROMBIN TIME 13.9 SECS (9.5-12.5)
[2022-07-29 08:00] VITALS: BP_SYST 156
[2022-07-29 08:36] LABS: C-REACTIVE PROTEIN QUANT 19.4 mg/dL (0-0.5); CALCIUM 8.1 mg/dL (8.4-11.0); CREATININE 1.62 mg/dL (0.55-1.30)
[2022-07-29 08:50] LABS: ERYTHROCYTE SEDIMENTATION RATE 88 MM/HR (0-15)
[2022-07-29] MEDS: metroNIDAZOLE 500 MG TABLET PO SCH ×2 (09:00→21:12)
[2022-07-29] MEDS: DOCUSATE SODIUM 250 MG CAPSULE PO SCH ×2 (09:00→21:12)
[2022-07-29] MEDS: MULTIVITAMINS TAB 1 TABLET PO SCH (09:08)
[2022-07-29] MEDS: ASCORBIC ACID 500 MG TABLET PO SCH (09:09)
[2022-07-29] MEDS: HYDROmorphone 1 MG/ML INJ. CARTRIDGE IV PRN ×4 (09:20→21:13)
[2022-07-29 11:19] VITALS: BP_SYST 111
[2022-07-29 12:40] VITALS: BP_SYST 118
[2022-07-29 16:45] VITALS: BP_SYST 119
--- NOTE | 2022-07-29 18:34 | NUR ---
Paged Dr. Mancia Daniel
--- NOTE | 2022-07-29 18:36 | NUR ---
Called and informed Dr. Mancia that pt refused to have PICC line placement today. Requested to have PICC line done either tomorrow or the following day. Pt reason was he did not feel good having anything done or moving/laying on his back to do the procedure. Pt is routinely getting pain meds. No new orders. 1800 Wound care dressing done to right buttock. Flushed with NS, patted dry, and packed with iodoform dressing. Pt tolerated well.
[2022-07-30 00:01] VITALS: BP_SYST 110
[2022-07-30] MEDS: HYDROmorphone 1 MG/ML INJ. CARTRIDGE IV PRN ×5 (03:18→23:00)
--- NOTE | 2022-07-30 03:34 | NUR ---
PAIN/ NEW IV: PT CALLED AND ASKED FOR PAIN MEDICATION C/O PAIN 04/22 , NOTICED IV IS NOT WORKING ,NEW IV STARTED TO THE RIGHT HAND 22 G ,2ND ATTEMPT , IV FLUSHED WELL , GOOD BLOOD RETURN NOTICED . DILAUDID GIVEN PER MD ORDER . LEFT HAND IV ACCESS DISCONTINUED , NO ACTIVE BLEEDING NOTICED , CATH TIP IS INTACT .
[2022-07-30] MEDS: VANCOMYCIN HCL 1,000 MG in NS 250 ML IV SCH ×2 (04:14→17:29)
[2022-07-30] MEDS: PIPERACILLIN/TAZO 4.5GM/DEX-IS 100 ML IV SCH ×3 (05:17→21:40)
[2022-07-30 06:57] LABS: BASOPHILS % (AUTO) 0.5 % (0.0-2.0); EOSINOPHILS # (AUTO) 0.1 K/uL (0.0-0.4); HEMATOCRIT 30.5 % (36-54); HEMOGLOBIN 10.5 g/dL (14.0-18.0); LYMPHOCYTES % (AUTO) 11.1 % (20.5-51.5); MEAN CORPUSCULAR HEMOGLOBIN 33 pg (27-31); MEAN CORPUSCULAR HGB CONC 34 % (32-36); MEAN CORPUSCULAR VOLUME 96 fL (79.0-98.0); MONOCYTES # (AUTO) 0.7 K/uL (0.0-1.0); NEUTROPHILS # (AUTO) 6.9 K/uL (1.8-7.7); NEUTROPHILS % (AUTO) 79.4 % (40.0-70.0); PLATELET COUNT (AUTO) 354 K/uL (130-430); RED BLOOD CELL COUNT(AUTO) 3.19 MIL/uL (4.2-6.2); RED CELL DISTRIBUTION WIDTH 14.3 % (9.0-15.0); WHITE BLOOD COUNT (AUTO) 8.7 K/uL (4.8-10.8)
[2022-07-30 07:20] LABS: C-REACTIVE PROTEIN QUANT 11.6 mg/dL (0-0.5); CALCIUM 7.5 mg/dL (8.4-11.0); CREATININE 1.51 mg/dL (0.55-1.30)
--- NOTE | 2022-07-30 08:00 | NUR ---
Opening Notes Pt. is AAox4, reports pain will medicate with prn medication. Pt. has dressing on left side clean dry and intact, and accordion drain is in place on left side, dressing is clean dry and intact, no drainage. Pt. has colostomy with liquid stool, emptied and cleansed surrounding skin, stool was brown, no blood noted, stoma is within normal limits, red and moist, surrounding skin intact. Fall precautions in place and call light is within reach.
[2022-07-30 09:00] VITALS: BP_SYST 146
[2022-07-30] MEDS: DOCUSATE SODIUM 250 MG CAPSULE PO SCH ×2 (09:00→21:21)
[2022-07-30] MEDS: MULTIVITAMINS TAB 1 TABLET PO SCH (09:11)
[2022-07-30] MEDS: metroNIDAZOLE 500 MG TABLET PO SCH ×2 (09:11→21:21)
[2022-07-30] MEDS: ASCORBIC ACID 500 MG TABLET PO SCH (09:11)
--- NOTE | 2022-07-30 10:00 | NUR ---
Dressing change done, cleansed with NS, applied packing with strips, covered with dry gauze and secured with tegaderm dressing.
[2022-07-30] MEDS ORDERED: NALOXONE HCL 0.4 MG/ML AMP (NARCAN) IVP PRN ×2 (10:15)
[2022-07-30 11:26] LABS: ERYTHROCYTE SEDIMENTATION RATE 89 MM/HR (0-15)
[2022-07-30 13:46] VITALS: BP_SYST 102
--- NOTE | 2022-07-30 14:00 | NUR ---
Pt. has been able to tolerate soft diet, it was advanced from full liquids, no nausea reported or abdominal pain, will continue to monitor.
--- NOTE | 2022-07-30 15:00 | NUR ---
CM: late entry: discussed dcp nini Ruiz, [facility] # [phone], Said Bx is at risk for snf placement, the accepting snf can call tel [phone] for auth. [facility] is at risk for opt care: I spoke with Tri clarke [facility] [phone] and faxed the order for EUS for dilated CBS and PD out patient appointment with a contracted facility. Per Tri, she forwarded the order to sebastian Silverio x [phone] and tricia Tan x [phone] to arrange.
[2022-07-30 17:29] VITALS: BP_SYST 134
[2022-07-30] MEDS: HYDROcodone/ACETAMIN 5-325 MG TAB (NORCO/ VICODIN) PO PRN ×2 (21:25→22:50)
[2022-07-31 00:14] VITALS: BP_SYST 129
--- NOTE | 2022-07-31 00:55 | NUR ---
Received bedside report and took over care of patient from ketty cody
[2022-07-31] MEDS: OXYCODONE/ACETAMINOPHEN 5-325 TABLET PO PRN (04:02)
--- NOTE | 2022-07-31 05:05 | NUR ---
pt medicated for pain with break through pain. all needs meet at this time. will continue to monitor
[2022-07-31] MEDS: HYDROmorphone 1 MG/ML INJ. CARTRIDGE IV PRN ×3 (05:08→22:07)
[2022-07-31] MEDS: PIPERACILLIN/TAZO 4.5GM/DEX-IS 100 ML IV SCH ×3 (05:08→22:08)
[2022-07-31 06:43] LABS: BASOPHILS % (AUTO) 0.2 % (0.0-2.0); EOSINOPHILS # (AUTO) 0.1 K/uL (0.0-0.4); EOSINOPHILS % (AUTO) 0.9 % (0.0-4.0); HEMATOCRIT 29.8 % (36-54); HEMOGLOBIN 10.3 g/dL (14.0-18.0); LYMPHOCYTES # (AUTO) 1.3 K/uL (1.0-5.5); LYMPHOCYTES % (AUTO) 16.9 % (20.5-51.5); MEAN CORPUSCULAR HEMOGLOBIN 33 pg (27-31); MEAN CORPUSCULAR HGB CONC 35 % (32-36); MEAN CORPUSCULAR VOLUME 95 fL (79.0-98.0); MONOCYTES # (AUTO) 0.6 K/uL (0.0-1.0); MONOCYTES % (AUTO) 8.7 % (1.7-9.3); NEUTROPHILS # (AUTO) 5.5 K/uL (1.8-7.7); NEUTROPHILS % (AUTO) 73.3 % (40.0-70.0); PLATELET COUNT (AUTO) 377 K/uL (130-430); RED BLOOD CELL COUNT(AUTO) 3.12 MIL/uL (4.2-6.2); RED CELL DISTRIBUTION WIDTH 14.6 % (9.0-15.0); WHITE BLOOD COUNT (AUTO) 7.4 K/uL (4.8-10.8)
[2022-07-31 06:58] LABS: ALBUMIN 1.8 g/dL (3.4-4.8); C-REACTIVE PROTEIN QUANT 7.2 mg/dL (0-0.5); CALCIUM 8.1 mg/dL (8.4-11.0); CREATININE 1.39 mg/dL (0.55-1.30); PHOSPHORUS 2.9 mg/dL (2.7-4.5); TOTAL BILIRUBIN 0.5 mg/dL (0.0-1.0)
--- NOTE | 2022-07-31 07:01 | NUR ---
pt in bed resting. pt doesn't appear to be in pain. will endorse care to day shift
--- NOTE | 2022-07-31 07:52 | NUR ---
RECEIVED BEDSIDE SBAR FORM PM SHIFT NURSE, PATIENT IS STABLE NO DISTRESS, BED AT LOW POSITION CALL LIGHT IN REACH WILL CONT TO MONITOR PER ORDERS
[2022-07-31 08:01] VITALS: BP_SYST 128
[2022-07-31 08:06] LABS: ERYTHROCYTE SEDIMENTATION RATE 96 MM/HR (0-15)
[2022-07-31] MEDS: HYDROcodone/ACETAMIN 5-325 MG TAB (NORCO/ VICODIN) PO PRN ×2 (09:12→12:05)
[2022-07-31] MEDS: MULTIVITAMINS TAB 1 TABLET PO SCH (09:12)
[2022-07-31] MEDS: metroNIDAZOLE 500 MG TABLET PO SCH ×2 (09:12→20:28)
[2022-07-31] MEDS: ASCORBIC ACID 500 MG TABLET PO SCH (09:12)
[2022-07-31] MEDS: DOCUSATE SODIUM 250 MG CAPSULE PO SCH ×2 (09:13→20:28)
--- NOTE | 2022-07-31 09:21 | NUR ---
D/C AKHTAR PER ORDERS
[2022-07-31] MEDS ORDERED: PERC10 PO (09:30)
[2022-07-31] MEDS ORDERED: HYDR-3927 PO (09:30)
[2022-07-31] MEDS ORDERED: MULT400T13 PO (09:30)
[2022-07-31] MEDS ORDERED: ASC500 PO (09:30)
[2022-07-31] MEDS ORDERED: METR-154 PO (09:30)
[2022-07-31] MEDS ORDERED: DOCU250C71 PO (09:30)
[2022-07-31] MEDS ORDERED: Zinc Sulfate PO (09:30)
[2022-07-31] MEDS ORDERED: CEFE2FRO IV (09:32)
--- NOTE | 2022-07-31 09:53 | NUR ---
AMBULATING IN HALLS WITH PT DOING WELL
[2022-07-31 10:14] LABS: INR 1.3 (0.80-1.20); PROTHROMBIN TIME 13.2 SECS (9.5-12.5)
[2022-07-31 11:14] VITALS: BP_SYST 115
--- NOTE | 2022-07-31 12:30 | NUR ---
ROUNDS PATIENT REMAINS STABLE NO DISTRESS CALL LIGHT IN REACH BED AT LOW POSITION FAMILY AT BEDSIDE WILL CONT TO MONITOR PER ORDERS.
--- NOTE | 2022-07-31 14:00 | NUR ---
CM: late entry: met with patient, his mother/Pat and Brittany at bedside , discussed dcp to snf per md order. Patient and family refused going to snf but requested HH for IV abx and wound care services instead. The pt will go to his mother's home , address [address] [place] [id number] tel # [phone].
--- NOTE | 2022-07-31 14:34 | NUR ---
Nutrition F/U Admitting Diagnosis Back Abscess Reviewed Pertinent Medical/Surgical Hx Medical Record Patient Mother Medical History Comment: Per EMR: 56y male with PMHx arthritis who presented to ED c/o worsening L gluteal pain x 2 days. Pt received I&D on L gluteal area after a spider bite in 2018. Pt is s/p I&D L buttock wound on 07/16 and 07/22. 07/25: Pt now has very large wound on L buttock that has foul smell and pus. 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 Mother present as well. Pt reported that he did not care much for breakfast and lunch provided today -- stated he mostly enjoys meats/potatoes/green beans/salad w/ ranch. Dislike of fish. RD noted in Comput[employer]. Bedscale wt taken: 124# -- closely c/w pt's physical appearance -- note possible 11# wt loss since admission 07/16 (15 days ago) -- 8% wt change, severe within 2 weeks. Pt may be at increased risk for malnutrition. RD offered nutrition education on colostomy MNT -- pt an mother agreeable. RD provided. Please refer to interdisciplinary teaching record for details. Per EMR review, 60% average PO intakes x last 5 meals since 07/29; continues on RA. Pt would benefit from soft (low-fiber/bland) diet as well as supplementation to optimize nutritional status for current condition. Current Diet Order/Nutrition Support: Mechanical soft x1 day Patient/Significant Other Able To Verbalize Education Provided Indicated Pertinent Medications: norco, zinc, VIT C, MVI, piperacillin/tazobactam, flagyl, vanocmycin, colace Pertinent Labs: CRE 1.39 H, BUN 12 WNL, BG 102 H, WBC 7.4 WNL Height (Feet) 5 feet Height (Inches) 9.00 inches Weight (Pounds) 135 pounds (07/17) Patient Weight 61.235 kg Body Mass Index 19.93 kg/m2 Usual Weight 140 lbs %UBW 96 %IBW 84 [place]/Adjusted Body Weight 160#/73kg Recent Weight Change 07/17 - Yes - 5# x 2 weeks = ~4% Moderate wt loss, non-severe Weight Status Appropriate Gastrointestinal Symptoms None per pt Last BM Per EMR: 07/28 x 1 Food Allergies No Usual Diet At Home Regular Skin Integrity Comment: Noah scale: 16 -- per EMR review, L buttocks w/ Sx incision; s/p I&D L buttock wound noted 07/17 and 07/22; no edema per EMR review Estimated Energy Expenditure (kcals/day) 0582-1202 (30-30 kcal/kg CBW for wound healing, wt loss) Estimated Protein Required (g/day) 91-110 (1.5-1.8 g/kg CBW for wound healing, wt loss) Estimated Fluid Required (l/day) 1.8-2.1 (1mL/kcal for wound healing, maintenance) Problem/Etiology/Signs/Symptoms * Increased energy and protein expenditure r/t wound healing a/e/b estimated nutritional needs for wounds; s/p I&D L gluteal abscess. (*Ongoing) * Inadequate oral intake r/t fatigue s/p Sx a/e/b 30% PO intake documented. (*Improving) *Inadequate energy intake r/t preparation for medical procedure aeb clear liquid and NPO diet x 2 days, (*Resolved) Expected Outcomes/Goals PO intake provides >85% estimated nutritional needs, nutrition-related labs trending WNL, improvements in skin integrity, weight maintenance, BM q 1-3 days. Dietitian Recommendations * Soft (low-fiber/bland) diet, Luis Miguel BID, Ensure TID (supplements yield an additional 1230 kcal/day, 65 gm protein/day) * Encourage increase PO intakes * Adhere to pt food preferences Moderate Risk: F/U in 3-5 days
--- NOTE | 2022-07-31 14:53 | NUR ---
Dietitian Recommendations * Soft (low-fiber/bland) diet, Luis [place] BID, Ensure TID (supplements yield an additional 1230 kcal/day, 65 gm protein/day) * Encourage increase PO intakes * Adhere to pt food preferences LP, MS, RD Please refer to Nutrition F/U for details.
[2022-07-31 15:32] VITALS: BP_SYST 123
[2022-07-31 15:39] VITALS: BP_SYST 128
--- NOTE | 2022-07-31 15:39 | NUR ---
Discharge Planning: DCP faxed pt referral to [facility] [phone] for IV meds, Zoë [phone] DCP to follow up Addendum: 07/31/22 at 1642 by Elzbieta HIGGINS [facility] [phone] for IV meds -will accept pt, Zoë [phone]-declined not contracted. DCP faxed to [facility] [phone],Aashish Sevilla [phone], [facility] [phone] DCP to foloow up
--- NOTE | 2022-07-31 17:30 | NUR ---
recieved report received report from Kyra MARCELINO, patient in bed, respirations even, non labored, bed in low and locked position call light within reach, bed alarm on
[2022-07-31] MEDS: VANCOMYCIN HCL 1,000 MG in NS 250 ML IV SCH (17:36)
--- NOTE | 2022-07-31 19:20 | NUR ---
closing note provided SBAR to night RN. Patient in bed respirations even, non labored, bed in low and locked position, call light within reach. endorsed to night caretaker grounds.
--- NOTE | 2022-07-31 19:30 | NUR ---
INITIAL NOTE AT INITIAL ASSESSMENT, PATIENT IS RESTING IN BED, STABLE, NO SIGNS OF RESPIRATORY DISTRESS. PATIENT VERBALIZES SEVERE PAIN, PRN MEDICATION WILL BE GIVEN TO PATIENT AT THIS TIME. PLAN OF CARE FOR THE EVENING IS COMMUNICATED WITH PATIENT. CALL LIGHT TEACH BACK IS SUCCESSFUL. BED IS LOCKED, AND AT THE LOWEST LEVEL. URINAL AND URINAL MIDDLETON PROVIDED FOR CONVENIENCE. FALL AND SAFETY PRECAUTIONS WILL BE IN PLACE THROUGHOUT THE SHIFT.
[2022-07-31 19:35] VITALS: BP_SYST 130
--- NOTE | 2022-07-31 22:15 | NUR ---
INCENTIVE SPIROMETER TEACHING PATIENT DEMONSTRATES CORRECT USAGE OF INCENTIVE SPIROMETER AT THIS TIME. HE IS AVERAGING 2000 ML, HE VERBALIZES KNOWING TO PRACTICE "10 TIMES AN HOUR" WHILE AWAKE. PATIENT'S OXYGEN SATURATION ON ROOM AIR IS WNL. WILL CONTINUE TO ENCOURAGE USAGE OF INCENTIVE SPIROMETER.
--- NOTE | 2022-07-31 23:00 | NUR ---
INITIAL NOTE AT INITIAL ASSESSMENT, PATIENT IS RESTING IN BED, STABLE, NO SIGNS OF RESPIRATORY DISTRESS. PATIENT VERBALIZES HEADACHE, PRN MEDICATION GIVEN TO PATIENT FOR HIS HEADACHE. PLAN OF CARE FOR THE EVENING IS COMMUNICATED WITH PATIENT. CALL LIGHT TEACH BACK IS SUCCESSFUL. BED IS LOCKED, AND AT THE LOWEST LEVEL. URINAL AND URINAL MIDDLETON PROVIDED FOR CONVENIENCE. FALL AND SAFETY PRECAUTIONS WILL BE IN PLACE THROUGHOUT THE SHIFT. Addendum: 08/01/22 at 0614 by Ayesha Casper RN RN ERRORNOTE INTENDED FOR DIFFERENT PATIENT
[2022-08-01 00:08] VITALS: BP_SYST 121
[2022-08-01] MEDS: HYDROmorphone 1 MG/ML INJ. CARTRIDGE IV PRN ×5 (02:26→20:04)
--- NOTE | 2022-08-01 03:15 | NUR ---
WOUND CARE WOUND CARE PERFORMED AT THIS TIME USING WET TO DRY TECHNIQUE WITH IODOFORM [address] LEUNG'S ORDERS. PRN MEDICATION FOR SEVERE PAIN GIVEN TO PATIENT BEFORE START OF WOUND CARE. PATIENT TOLERATED WELL. HE IS REPOSITIONED FOR COMFORT, WOUND SITE IS OFFLOADED FROM PRESSURE USING EXTRA PILLOWS.
[2022-08-01] MEDS: VANCOMYCIN HCL 1,000 MG in NS 250 ML IV SCH ×2 (04:11→17:59)
[2022-08-01] MEDS: OXYCODONE/ACETAMINOPHEN 5-325 TABLET PO PRN ×2 (04:14→14:44)
--- NOTE | 2022-08-01 06:28 | NUR ---
CLOSING NOTE PATIENT SLEPT WELL THROUGHOUT THE NIGHT. PATIENT VERBALIZED THAT PRN MEDICATION GIVEN TO HIM FOR HIS PAIN WERE EFFECTIVE. CALL LIGHT IS WITHIN REACH. BED IS LOCKED, ALARMED, AND AT THE LOWEST LEVEL. FALL, SAFETY, AND ASPIRATION PRECAUTIONS HAVE BEEN IN PLACE THROUGHOUT THE SHIFT. WILL CONTINUE TO MONITOR UNTIL REPORT IS GIVEN AT BEDSIDE TO AM NURSE.
[2022-08-01] MEDS: PIPERACILLIN/TAZO 4.5GM/DEX-IS 100 ML IV SCH ×3 (06:45→23:52)
[2022-08-01 07:00] VITALS: BP_SYST 136
[2022-08-01 07:42] LABS: BASOPHILS % (AUTO) 0.3 % (0.0-2.0); EOSINOPHILS # (AUTO) 0.1 K/uL (0.0-0.4); EOSINOPHILS % (AUTO) 1.2 % (0.0-4.0); HEMATOCRIT 28.9 % (36-54); LYMPHOCYTES # (AUTO) 1.2 K/uL (1.0-5.5); LYMPHOCYTES % (AUTO) 15.7 % (20.5-51.5); MEAN CORPUSCULAR HEMOGLOBIN 33 pg (27-31); MEAN CORPUSCULAR HGB CONC 35 % (32-36); MEAN CORPUSCULAR VOLUME 95 fL (79.0-98.0); MONOCYTES # (AUTO) 0.5 K/uL (0.0-1.0); MONOCYTES % (AUTO) 6.5 % (1.7-9.3); NEUTROPHILS # (AUTO) 5.9 K/uL (1.8-7.7); NEUTROPHILS % (AUTO) 76.3 % (40.0-70.0); PLATELET COUNT (AUTO) 372 K/uL (130-430); RED BLOOD CELL COUNT(AUTO) 3.05 MIL/uL (4.2-6.2); RED CELL DISTRIBUTION WIDTH 14.1 % (9.0-15.0); WHITE BLOOD COUNT (AUTO) 7.7 K/uL (4.8-10.8)
[2022-08-01 08:05] LABS: C-REACTIVE PROTEIN QUANT 5.2 mg/dL (0-0.5); CALCIUM 8.1 mg/dL (8.4-11.0); CREATININE 1.42 mg/dL (0.55-1.30)
[2022-08-01] MEDS: ASCORBIC ACID 500 MG TABLET PO SCH (08:45)
[2022-08-01] MEDS: MULTIVITAMINS TAB 1 TABLET PO SCH (08:45)
[2022-08-01] MEDS: DOCUSATE SODIUM 250 MG CAPSULE PO SCH ×2 (08:45→20:04)
[2022-08-01] MEDS: metroNIDAZOLE 500 MG TABLET PO SCH ×2 (08:46→20:04)
[2022-08-01 08:49] LABS: ERYTHROCYTE SEDIMENTATION RATE 94 MM/HR (0-15)
[2022-08-01 11:22] VITALS: BP_SYST 150
--- NOTE | 2022-08-01 12:00 | NUR ---
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 is pre admitted at this time and they will accept Wednesday once insurance authorization is confirmed, unbale to do so over the weekend. Jacquelyn RAMACHANDRAN- no contact, pt. does not qualify Aashish Edison- No response back as to status.
[2022-08-01 15:26] VITALS: BP_SYST 103
[2022-08-01] MEDS: HYDROcodone/ACETAMIN 5-325 MG TAB (NORCO/ VICODIN) PO PRN (18:21)
[2022-08-01 19:00] VITALS: BP_SYST 131; BP_SYST 135
[2022-08-01 20:00] VITALS: BP_SYST 121
[2022-08-02] VITALS: BP_SYST 118
--- NOTE | 2022-08-02 00:04 | NUR ---
Patient was given his prescribed medications and report wqas given to ZARA MANUEL FOR CONTINUITY OF CARE
[2022-08-02] MEDS: HYDROmorphone 1 MG/ML INJ. CARTRIDGE IV PRN ×3 (01:18→18:11)
[2022-08-02] MEDS: VANCOMYCIN HCL 1,000 MG in NS 250 ML IV SCH ×2 (04:19→18:11)
[2022-08-02] MEDS: OXYCODONE/ACETAMINOPHEN 5-325 TABLET PO PRN ×2 (05:11→12:24)
[2022-08-02] MEDS: PIPERACILLIN/TAZO 4.5GM/DEX-IS 100 ML IV SCH ×3 (06:10→22:01)
[2022-08-02 07:28] LABS: BASOPHILS % (AUTO) 0.6 % (0.0-2.0); EOSINOPHILS # (AUTO) 0.1 K/uL (0.0-0.4); EOSINOPHILS % (AUTO) 1.5 % (0.0-4.0); HEMATOCRIT 29.2 % (36-54); LYMPHOCYTES # (AUTO) 1.3 K/uL (1.0-5.5); LYMPHOCYTES % (AUTO) 16.2 % (20.5-51.5); MEAN CORPUSCULAR HEMOGLOBIN 33 pg (27-31); MEAN CORPUSCULAR HGB CONC 34 % (32-36); MEAN CORPUSCULAR VOLUME 95 fL (79.0-98.0); MONOCYTES # (AUTO) 0.7 K/uL (0.0-1.0); MONOCYTES % (AUTO) 8.7 % (1.7-9.3); NEUTROPHILS # (AUTO) 6.1 K/uL (1.8-7.7); PLATELET COUNT (AUTO) 370 K/uL (130-430); RED BLOOD CELL COUNT(AUTO) 3.07 MIL/uL (4.2-6.2); RED CELL DISTRIBUTION WIDTH 14.5 % (9.0-15.0); WHITE BLOOD COUNT (AUTO) 8.3 K/uL (4.8-10.8)
[2022-08-02 07:52] LABS: C-REACTIVE PROTEIN QUANT 4.8 mg/dL (0-0.5); CALCIUM 8.5 mg/dL (8.4-11.0); CREATININE 1.66 mg/dL (0.55-1.30)
[2022-08-02 08:00] VITALS: BP_SYST 122
[2022-08-02 08:35] LABS: ERYTHROCYTE SEDIMENTATION RATE 95 MM/HR (0-15)
[2022-08-02] MEDS: metroNIDAZOLE 500 MG TABLET PO SCH ×2 (08:47→22:03)
[2022-08-02] MEDS: MULTIVITAMINS TAB 1 TABLET PO SCH (08:48)
[2022-08-02] MEDS: DOCUSATE SODIUM 250 MG CAPSULE PO SCH ×2 (08:48→22:03)
[2022-08-02] MEDS: ASCORBIC ACID 500 MG TABLET PO SCH (08:48)
[2022-08-02 11:20] VITALS: BP_SYST 135
[2022-08-02 15:19] VITALS: BP_SYST 125
--- NOTE | 2022-08-02 18:58 | NUR ---
Mr Cano has been assessed as indicated. He has been successfully treated for pain several times this shift. left hip are drain has SS output in small amounts. he uses the urinal to void. His colostomy put out liquid brown stool. colostomy self care teaching has begun. he did manage to burp and drain the bag with assistance. he is compliant with assisting. He hope to be DC tomorrow. He did ambulate with the walker around the nursing unit with ihis significant other. the left buttock dressing has been changed. he is resting quietly at this time
[2022-08-02 19:00] VITALS: BP_SYST 132
[2022-08-02] MEDS: HYDROcodone/ACETAMIN 5-325 MG TAB (NORCO/ VICODIN) PO PRN (19:18)
[2022-08-02 20:03] VITALS: BP_SYST 132
[2022-08-03] VITALS (7 sets, daily range): BP systolic 122–140
[2022-08-03] MEDS: HYDROmorphone 1 MG/ML INJ. CARTRIDGE IV PRN ×4 (03:49→22:19)
[2022-08-03] MEDS: PIPERACILLIN/TAZO 4.5GM/DEX-IS 100 ML IV SCH ×3 (05:07→22:20)
[2022-08-03] MEDS: VANCOMYCIN HCL 1,000 MG in NS 250 ML IV SCH ×3 (05:08→20:03)
--- NOTE | 2022-08-03 06:40 | NUR ---
Patient stable this shift, taught how to empty the colostomy bag with assistance and he verbalized understanding. He is due for discharge today,to endorse to oncoming shift.
[2022-08-03 06:50] LABS: BASOPHILS % (AUTO) 0.5 % (0.0-2.0); EOSINOPHILS # (AUTO) 0.1 K/uL (0.0-0.4); HEMATOCRIT 30.3 % (36-54); HEMOGLOBIN 10.3 g/dL (14.0-18.0); LYMPHOCYTES # (AUTO) 1.1 K/uL (1.0-5.5); LYMPHOCYTES % (AUTO) 13.1 % (20.5-51.5); MEAN CORPUSCULAR HEMOGLOBIN 33 pg (27-31); MEAN CORPUSCULAR HGB CONC 34 % (32-36); MEAN CORPUSCULAR VOLUME 97 fL (79.0-98.0); MONOCYTES # (AUTO) 0.6 K/uL (0.0-1.0); MONOCYTES % (AUTO) 7.3 % (1.7-9.3); NEUTROPHILS # (AUTO) 6.7 K/uL (1.8-7.7); NEUTROPHILS % (AUTO) 78.1 % (40.0-70.0); PLATELET COUNT (AUTO) 387 K/uL (130-430); RED BLOOD CELL COUNT(AUTO) 3.14 MIL/uL (4.2-6.2); RED CELL DISTRIBUTION WIDTH 14.5 % (9.0-15.0); WHITE BLOOD COUNT (AUTO) 8.6 K/uL (4.8-10.8)
[2022-08-03 08:17] LABS: CALCIUM 8.8 mg/dL (8.4-11.0); CREATININE 1.51 mg/dL (0.55-1.30); TOTAL BILIRUBIN 0.4 mg/dL (0.0-1.0)
[2022-08-03 09:02] LABS: ERYTHROCYTE SEDIMENTATION RATE 99 MM/HR (0-15)
[2022-08-03] MEDS: metroNIDAZOLE 500 MG TABLET PO SCH ×2 (10:03→22:19)
[2022-08-03] MEDS: ASCORBIC ACID 500 MG TABLET PO SCH (10:03)
[2022-08-03] MEDS: MULTIVITAMINS TAB 1 TABLET PO SCH (10:04)
[2022-08-03] MEDS: DOCUSATE SODIUM 250 MG CAPSULE PO SCH ×2 (10:04→22:19)
--- NOTE | 2022-08-03 11:38 | NUR ---
Discharge Planning: [facility] [phone] for IV meds -will accept pt will deliver meds today, [facility] [phone] accepting patient.
--- NOTE | 2022-08-03 15:50 | NUR ---
CM: updated Crystal/CM [employer] [facility] . the patient is being dc to home with HH today s/w tricia Tan faxl# [phone], tel [phone] [facility], Informed the pt is discharged to home with HH today. The pt needs EUS for dilated CBD and PD / out patient appointment set up. The requested documents : FS, HP, EMR , Covid result and progress notes were faxed to [phone]. Dominick will arrange with a contracted clinic , give auth and will fax the copy to me/patient.
--- NOTE | 2022-08-03 19:00 | NUR ---
Mr Cano has been assessed as indicated. he has been successfully treated for pain x2 this shift. this personal lines underwriter spoke with the home care pharmacy related to hoe going IB [facility] ([phone]). they were made aware that the patient will not DC home today. They stated the IV Meds will be delivered to his home tonight with anticipated DC tomorrow. Mr Cano states that his mother has filemon called and will accept the delivery. colostomy teaching continues. He was able to empty the colostomy unassisted. there have been no opportunities to teach bag changing today. his S/O was at the bedside today. Vanco trough level delayed by lab. 1700 dose held for level availability. level was elevated dose held per Dr Appiah. Vanco random level will be drawn in AM to reevaluate dosing.
--- NOTE | 2022-08-03 19:15 | NUR ---
handoff given to Makayla
--- NOTE | 2022-08-03 19:55 | NUR ---
Dr. block made aware of vanco level. 1700 dose will not be given vanco random level will be added to morning labs
[2022-08-04] VITALS: BP_SYST 132
[2022-08-04 04:00] VITALS: BP_SYST 128
[2022-08-04] MEDS: OXYCODONE/ACETAMINOPHEN 5-325 TABLET PO PRN ×2 (04:47→12:19)
[2022-08-04] MEDS: PIPERACILLIN/TAZO 4.5GM/DEX-IS 100 ML IV SCH ×2 (05:49→13:38)
--- NOTE | 2022-08-04 07:03 | NUR ---
PATIENT STABLE, REPORTS MUCH IMPROVEMENT, REPORT GIVEN TO AM SHIFT NURSE FOR CONTINUITY OF CARE
[2022-08-04 07:10] LABS: BASOPHILS % (AUTO) 0.4 % (0.0-2.0); EOSINOPHILS # (AUTO) 0.1 K/uL (0.0-0.4); HEMATOCRIT 30.6 % (36-54); HEMOGLOBIN 10.6 g/dL (14.0-18.0); LYMPHOCYTES # (AUTO) 1.2 K/uL (1.0-5.5); MEAN CORPUSCULAR HEMOGLOBIN 33 pg (27-31); MEAN CORPUSCULAR HGB CONC 35 % (32-36); MEAN CORPUSCULAR VOLUME 95 fL (79.0-98.0); MONOCYTES # (AUTO) 0.9 K/uL (0.0-1.0); MONOCYTES % (AUTO) 9.4 % (1.7-9.3); NEUTROPHILS % (AUTO) 76.2 % (40.0-70.0); PLATELET COUNT (AUTO) 412 K/uL (130-430); RED BLOOD CELL COUNT(AUTO) 3.21 MIL/uL (4.2-6.2); RED CELL DISTRIBUTION WIDTH 14.4 % (9.0-15.0); WHITE BLOOD COUNT (AUTO) 9.2 K/uL (4.8-10.8)
[2022-08-04 07:47] LABS: CALCIUM 8.2 mg/dL (8.4-11.0); CREATININE 1.55 mg/dL (0.55-1.30); VANCOMYCIN,RANDOM 24.5 ug/mL
[2022-08-04 09:52] VITALS: BP_SYST 123
[2022-08-04] MEDS: metroNIDAZOLE 500 MG TABLET PO SCH (09:54)
[2022-08-04] MEDS: ASCORBIC ACID 500 MG TABLET PO SCH (09:54)
[2022-08-04] MEDS: DOCUSATE SODIUM 250 MG CAPSULE PO SCH (09:54)
[2022-08-04] MEDS: MULTIVITAMINS TAB 1 TABLET PO SCH (09:55)
[2022-08-04] MEDS: HYDROmorphone 1 MG/ML INJ. CARTRIDGE IV PRN (09:56)
[2022-08-04 12:00] VITALS: BP_SYST 128
--- NOTE | 2022-08-04 12:05 | NUR ---
Discharge Planning: [facility] [phone] for IV meds -will accept pt will deliver meds today btw 7pm-9pm, [facility] [phone] accepting patient, will see pt tomorrow. DCP made CM aware.
[2022-08-04 13:04] VITALS: BP_SYST 128
[2022-08-04 16:00] VITALS: BP_SYST 135
--- NOTE | 2022-08-04 16:24 | NUR ---
Patient dc home. Discharge instructions explained and given to the patient. Patient left accompanied by the family member.
== END 2022-08-04 16:00 | disposition home health service (06) | DRG 710 ==
LOC: SED 08:36 → SMU 11:59
PROVIDERS: ADMIT Preventive Medicine Preventive Medicine/Occupational Environmental Medicine; ATTEND Preventive Medicine Preventive Medicine/Occupational Environmental Medicine
PROC: 0J990ZZ Drainage of Buttock Subcutaneous Tissue and Fascia, Open Approach (ICD-10-PCS; principal; 2022-07-16 17:12)
PROC: 0J970ZZ Drainage of Back Subcutaneous Tissue and Fascia, Open Approach (ICD-10-PCS; 2022-07-22)
PROC: 0D1M4Z4 Bypass Descending Colon to Cutaneous, Percutaneous Endoscopic Approach (ICD-10-PCS; 2022-07-28)
PROC: [UNRECOGNIZED PROCEDURE] (2022-07-28)
PROC: 0DNE4ZZ Release Large Intestine, Percutaneous Endoscopic Approach (ICD-10-PCS; 2022-07-28)
PROC: 02HV33Z Insertion of Infusion Device into Superior Vena Cava, Percutaneous Approach (ICD-10-PCS; 2022-07-28)
DX: A41.9 Sepsis, unspecified organism (principal); N17.0 Acute kidney failure with tubular necrosis; E44.0 Moderate protein-calorie malnutrition; E87.1 Hypo-osmolality and hyponatremia; M87.9 Osteonecrosis, unspecified; E83.51 Hypocalcemia; E83.41 Hypermagnesemia; E88.09 Other disorders of plasma-protein metabolism, not elsewhere classified; L02.212 Cutaneous abscess of back [any part, except buttock and flank]; N18.9 Chronic kidney disease, unspecified; L02.31 Cutaneous abscess of buttock; Z20.822 Contact with and (suspected) exposure to COVID-19; M46.28 Osteomyelitis of vertebra, sacral and sacrococcygeal region; B96.20 Unspecified Escherichia coli [E. coli] as the cause of diseases classified elsewhere; E83.52 Hypercalcemia; K60.4 Rectal fistula; D64.9 Anemia, unspecified; S31.829A Unspecified open wound of left buttock, initial encounter; X58.XXXA Exposure to other specified factors, initial encounter; Z79.891 Long term (current) use of opiate analgesic; Y93.89 Activity, other specified; Y92.89 Other specified places as the place of occurrence of the external cause; Y99.8 Other external cause status; Z93.3 Colostomy status; Z68.1 Body mass index [BMI] 19.9 or less, adult
CPT/HCPCS: 36415; 70030; 71045; 72148; 72192-TC; 72195; 74018; 74181; 75989-TC; 76376; 80048; 80053; 80074; 80202; 81000; 82977; 83605; 83735; 84100; 85025; 85610-TC; 85651-TC; 85730-TC; 86140; 87040; 87070; 87070-TC; 87075-TC; 87081; 93005; 94010; 94760; 96365; 96367; 96375; 99285; C1727; J0690; J0696; J1170; J2001; J2250; J2270; J2543; J2704; J2710; J3010; J3370; J3490; J7030; J7050; J7060; J7120; Q9964; Q9967